=== PATIENT | female | born 1975 | race Caucasian/White ===

== ENCOUNTER → 2019-08-15 15:03 | Outpatient (CLI) | payer BC, SELFPAY ==
--- NOTE | 2019-08-15 15:09 | US_ITS ---
PROCEDURE: US TRANSVAGINAL CLINICAL INDICATION: Heavy Bleeding/Pelvic Pain COMPARISON: No exams were available for comparison FINDINGS: UTERUS: 7cm x 6cmx 6cm with a combined endometrial thickness of 20.9mm LEFT OVARY: 3dqi8xao3.2cm with a volume of 27.6ml. RIGHT OVARY: [id number] with a volume of 23.2ml. There is an 18 mm nabothian cyst. The uterus is retroverted and the endometrium is thickened at 2 cm. There is a 3 cm left ovarian cyst. There is a 3.7 cm area of heterogeneous echogenicity in the fundus consistent with a fibroid. There is a 2 x 16 mm area isoechoic area with enhanced through transmission of sound involving the right ovary may be due to hemorrhagic cyst IMPRESSION: 1. Thickened endometrium at 2 cm. 2. 3.7 cm fibroid within the fundus. 3. 3 cm left ovarian cyst with fluid in the left adnexa 4. Possible 2 cm right ovarian hemorrhagic cyst Dictated by: Shahid Batista MD 08/15/2019 16:08 Electronically signed by Shahid Batista MD in [place] 08/15/2019 16:08
== END ==
PROVIDERS: PCP Emergency Medicine; Visit Provider Nurse Practitioner Obstetrics & Gynecology
DX: N92.0 Excessive and frequent menstruation with regular cycle (principal); R10.2 Pelvic and perineal pain
CPT/HCPCS: 76830

== ENCOUNTER → 2019-08-31 11:33 | Outpatient (CLI) | payer BC, SELFPAY ==
[2019-08-31 12:21] LABS: Basophils # 0.1 K/mm3 (0-0.2); Basophils % 0.8 % (0.1-2.0); Eosinophils # 0.3 K/mm3 (0.0-0.4); Eosinophils % 4.3 % (0.1-12.0); Hematocrit 32.1 % (37.0-47.0); Hemoglobin 10.8 g/dL (12.2-16.2); Lymphocytes # 1.8 K/mm3 (0.7-4.5); Lymphocytes % 31.3 % (10-50); Mean Corpuscular HGB Conc 33.6 g/dL (31.8-35.4); Mean Corpuscular Hemoglobin 29.2 pg (27.0-31.2); Mean Corpuscular Volume 86.9 fl (81-99); Mean Platelet Volume 7.4 fl (7.4-10.4); Monocytes # 0.2 K/mm3 (0.1-1.0); Monocytes % 3.8 % (1.7-9.3); Neutrophils # 3.5 K/mm3 (1.8-7.8); Neutrophils % 59.7 % (37.0-80.0); Platelet Count 365 K/mm3 (142-424); Red Blood Count 3.69 M/mm3 (4.20-5.40); Red Cell Distribution Width 13.5 % (11.5-17.5); White Blood Count 5.9 K/mm3 (4.8-10.8)
[2019-08-31 13:09] LABS: Anion Gap 10.5 mEq/L (5-15); Blood Urea Nitrogen 25 mg/dl (7-17); Calcium 9.5 mg/dl (8.4-10.2); Carbon Dioxide 28 mmol/L (22.0-30.0); Chloride 101 mmol/L (98-107); Estimated Glomerular Filt Rate 78 ml/min (>60); GFR (African American) 94 ML/MIN (>60); Glucose 98 mg/dl (74-100); Potassium 4.5 mmoL/L (3.5-5.1); Sodium 135 mmol/L (136-145)
[2019-08-31 13:16] LABS: HCG Qualitative, Serum Negative (Negative)
[2019-08-31 13:25] LABS: Coronavirus 19 IgG Antibody Negative (Negative); Coronavirus 19 IgM Antibody Negative (Negative)
== END ==
PROVIDERS: Visit Provider Nurse Practitioner Obstetrics & Gynecology
DX: Z01.818 Encounter for other preprocedural examination (principal); D25.9 Leiomyoma of uterus, unspecified; N92.0 Excessive and frequent menstruation with regular cycle; R10.2 Pelvic and perineal pain
CPT/HCPCS: 36415; 80048; 84703; 85025; 86328

== ENCOUNTER 2019-09-03 10:44 | Observation (INO) | payer BC, SELFPAY ==
--- NOTE | 2019-08-30 15:09 | SUR.PREOP ---
08/30/2019 @ 1500--PHONE CALL MADE TO PATIENT. PATIENT UNDERSTANDS THAT LAB WORK AND COVID TESTING NEEDS TO BE COMPLETED @ 1100 ON 08/31/2019. PATIENT UNDERSTANDS IF LAB WORK AND COVID-19 TESTS ARE NOT COMPLETED BY 12PM ON THAT DATE, THE SURGERY SCHEDULED WILL BE CANCELLED AND RESCHEDULED FOR ANOTHER TIME.
[2019-08-31 10:41] VITALS: BMI 31.2
[2019-09-03] VITALS (26 sets, daily range): BP systolic 106–139; BP diastolic 51–76; PULSE 53–70; RESP 7–20; TEMP 36.4–43; O2SAT 95–100
--- NOTE | 2019-09-03 06:50 | ECG_ITS ---
APPROVED REPORT Exam: Resting ECG HR:65 bpm ECG Measurements Heart Rate 65 AXES NE 140 P 72 QRSd 106 QRS 66 QT 450 T 31 QTc 468 <Conclusion> Normal sinus rhythm Normal ECG Electronically signed by : Demario Scott, 09/03/2019 17:27:20
--- NOTE | 2019-09-03 08:26 | P.PN_ITS ---
[facility] Anesthesia Checklist - Patient Identification Patient Identification: Arm Band, Verbal (Name & ) - Structural Data Admitted From: Home Planned Operative Procedure/s: LAVH, BSO Consent for Planned Operative Procedure(s) Verified: Yes Verified Documents: Surgical Consent, History and Physical - NPO Status Verified Time NPO: 00:00 - Chart Verification Results Verified: CBC, BMP, UA - Additional verifications Patient : No Anesthesia Reactions: No Hx Blood Transfusions: No Blood Transfusion Reaction: No - Airway Assessment C-Spine Mobility Assessed: Yes (MP 2, TMD 2) TMJ Mobility Assessed: Yes Dentition: Good Dentition ([place]) - Neurological Assessment Level of Consciousness: Awake, Alert, Appropriate, Follows Commands Hx Seizures: No Numbness or tingling in extremities: No - Anesthesia Plan Anesthesia Risk discussed: Yes Anesthesia Plan: Verified ASA Class: II Anesthesia Type: General [facility] History I have reviewed the patient's past medical history: Yes Medical History: Reports:: Asthma Denies:: Cancer, Diabetes Mellitus Type 1, Diabetes Mellitus Type 2, Internal Pacemaker, MRSA, Seizures *Have you ever received a pneumonia vaccine?: No *Have you received a flu vaccine this season?: No Other Medical History: Denies: Blood Transfusion Reaction Anesthesia experience/problems:: No prior complications Laterality Cases: Bilateral: Tonsillectomy Other Surgeries: No: Pacemaker Amputation: No Fractures: No - *Social History Educational Level: Completed High School Smoking Status: Never smoker Alcohol Intake: never Substance Use Type: denies use *Occupational Status:: employed Housing: house *Travel in the last 8 weeks: None Family Hx:: Cancer, Coronary Artery Disease, Heart Attack
--- NOTE | 2019-09-03 10:02 | HMH.OPNOTE ---
Date of procedure: 09/03/19 Pre-op Diagnosis:: Fibroid uterus, menorrhagia, left ovarian cyst Post-op Diagnosis:: Fibroid uterus, menorrhagia, extensive pelvic peritoneal adhesions, left ovarian peritoneal cyst, likely endometriosis with chocolate cyst, Procedure performed:: Laparoscopically assisted vaginal hysterectomy, left salpingo-oophorectomy, right salpingectomy, extensive lysis of adhesions Surgeon:: Tor Parker MD Loans Consultant(s):: Day Cooley MAINTENANCE GROUNDSKEEPER:: Clay Dorantes Anesthesia: GETA Estimated blood loss (mL): 500 Clinical Note:: She is a 44-year-old lady who complains of extremely heavy periods. An ultrasound confirmed a 3 cm fibroid within the uterus. She also had what appeared to be a left ovarian cyst. An endometrial biopsy was negative for hyperplasia or carcinoma. After having discussed the risk and benefits we elected perform a laparoscopic-assisted vaginal hysterectomy and bilateral salpingectomy. We discussed the left ovarian cyst and the possibility of removing the left ovary. Operative findings:: She had a retroverted bulky uterus. It was fixed in the pelvis. There was a fibroid approximately 3 cm in size that was to the right of the cervix in the lower uterine segment. The right ovary and tube were completely adherent into the pelvis. The left ovary and tube were also adherent into the deep pelvis as well. There was a 3 to 4 cm peritoneal inclusion cyst. When I freed up the ovaries there was some chocolate old blood possibly consistent with endometriosis. The appendix appeared normal. The upper abdomen appeared normal. Operative note:: She was taken to the operating room where general anesthesia was found be adequate. She was prepped and draped in normal sterile fashion in the semilithotomy position. A weighted speculum was placed in the vagina and the anterior lip of the cervix was grasped with a tenaculum. An acorn uterine manipulator was then placed within the cervical os. I then changed gloves. I injected 10 cc of 0.5% ropivacaine around the umbilicus and made a small incision within the umbilicus. I inserted a Veress needle into the abdominal cavity. The abdominal cavity was then insufflated with carbon dioxide gas to a pressure of 20 mmHg. I then inserted an 11 mm trocar under direct vision. I injected through and through the pubic hairline, made a small incision here and inserted a 5 mm trocar under direct vision. I identified the inferior epigastric arteries on the left side, went lateral to these and injected through and through. I then made a small incision and inserted an 11 mm trocar under direct vision. A similar 11 mm trocar was placed on the right side. Upon entering the abdominal cavity was noted that the uterus was retroverted and retroflexed and fixed in the pelvis. The ovaries bilaterally and tubes were adherent to the deep pelvis. There was a 3 to 4 cm peritoneal inclusion cyst. Using harmonic scalpel as well as blunt and sharp dissection I freed up the ovaries bilaterally. This was quite extensive and it took me about half an hour to do this. The left round ligament was then grasped and cut through with harmonic scalpel. This was followed by opening up the peritoneum anteriorly to the midline. I then grasped the tube on the left side and cut through this. This is followed by cutting through the left utero-ovarian ligament. I used Harmonic scalpel on the coagulation mode. I then took down the posterior aspect of the broad ligament to the level of the uterosacral ligament. I then skeletonized the uterine arteries on the left side and placed hemoclips on these. Using the harmonic scalpel on coagulation mode adjacent to the cervix I then took down these uterine arteries. I then further freed up the bladder anteriorly and laterally on the left side. I then turned my attention to the right side where I grasped the right round ligament. I then cut through the right round ligament.
--- NOTE | 2019-09-03 10:10 | P.PN_ITS ---
[facility] Anesthesia Record Part I Intake, IV Amount: 1,300 Estimated blood loss (mL): 500 Urine output (mL): 50 Blood Products used (#): none Blood Pressure: 106/69 SaO2: 97 Pulse Rate: 69 Respiratory Rate: 10 Temperature: 97.5 F Patient is:: Drowsy, Oral/Nasal airway, Stable Stable to PACU at:: 10:07
--- NOTE | 2019-09-03 10:44 | PC.NURSE ---
Report received from Monisha Lee RN in PACU at 1043.
--- NOTE | 2019-09-03 10:51 | P.CONPHA_ITS ---
[facility] Pharmacy VTE Monitoring - Patient Demographics Admission date: 09/03/19 Report Date: 09/03/19 Time: 10:51 Allergies/Adverse Reactions: Patient Allergies No Known Allergies Allergy (Verified 08/31/19 10:38) Height: 1.57 m Weight: 77.564 kg - Prophylaxis VTE Prophylaxis Ordered?: Yes Types of VTE Prophylaxis: IPCS Thigh High, Pharmacological Location of Applied Device: Bilateral Lower Extremeties Pharmacologic Type: Enoxaparin - VTE Diagnosis Confirmed Treatment or plan recommended: Continue Current Treatment
--- NOTE | 2019-09-03 11:22 | PC.NURSE ---
1120 Pt sleeping soundly with resps even and unlabored. IV patent and infusing without difficulty. F/C patent and draining bright, yellow urine at bedside. IPCS on BLE. Bed locked and in lowest position with side rails up x2, call light within reach, at bedside.
[2019-09-03 11:52] LABS: Appearance,Urine/Cath CLOUDY (Clear); Bilirubin,Cath Negative (Negative); Blood, Urine/Cath 2+ (Negative); Color,Urine/Cath YELLOW (Yellow); Glucose,Urine/Cath (UA) Negative (Negative); Ketones,Urine/Cath Negative (Negative); Leukocyte Esterase,Cath Negative (Negative); Nitrate,Cath Negative (Negative); Protein,Urine/Cath TRACE (Negative); Specific Gravity, Urine/Cath >= 1.030 (1.005-1.030); Urobilinogen,Cath 0.2 EU/dl (0.2)
[2019-09-03 12:33] LABS: Bacteria,Urine/Cath 1+ /lpf; Squamous Epithelial Ur./Cath Occasional #/hpf (0-5)
--- NOTE | 2019-09-03 14:55 | HMH.ANESII ---
[facility] Anesthesia Record Part II Discharge Time: 10:48 Destination: Obstetric Gynecology Dept PACU nurse assessment reviewed?: Yes Patient Condition:: Good Anesthesia Complications:: None Swallowing reflex intact?: Yes Cyanosis?: No Blood Pressure: 123/76 Pulse Rate: 61 Temperature: 97.5 F Mental Status: Alert & Oriented (Drowsy) Pain level:: 0 Nausea and/or vomitting:: None Intake, IV Amount: 0
--- NOTE | 2019-09-03 16:05 | PC.NURSE ---
RN reassessment completed at 1600. Pt is s/p LAVH with LSO, RS and lysis of adhesions. Pt has 4 lap sites to abdomen with telfa and tegaderm dressings. Scant amount of serosang. drainage noted to suprapubic site which is unchanged from previous assessment. Abdomen is soft and mildly tender with BS active in all quads. Pt denies passing any flatus. Pt has tolerating full liquids well and has been advanced to a regular diet per MD order. Lung sounds CTA, pt without any s/s distress. VSS. Pt medicated with scheduled toradol at this time for c/o pain in her abdomen as a 6 on a 0-10 scale, will reassess pain level. 20 G IV in right hand infusing without any difficulty. F/C patent and draining bright yellow urine at bedside, approx 200 ml of urine noted in collection bag. S/O at bedside at this time, pt dozing off and on during reassessment. Bed locked and in the lowest position with side rails up x2, call light within reach, will continue to monitor.
--- NOTE | 2019-09-03 16:10 | PC.NURSE ---
lab personnel at bedside at this time for H/H.
[2019-09-03 16:21] LABS: Hematocrit 26.4 % (37.0-47.0); Hemoglobin 8.7 g/dL (12.2-16.2)
--- NOTE | 2019-09-03 18:59 | PC.NURSE ---
Pt sitting up in bed looking at her telephone and talking to her . Pt reports recent nausea that has now resolved. Pt reports I think I drank too much water. Pt aware that there is medication ordered if she needs anything for nausea. No needs/concerns voiced at this time, call light within reach.
--- NOTE | 2019-09-03 19:10 | PC.NURSE ---
REPORT RECEIVED FROM SHARON PINTO.
--- NOTE | 2019-09-03 19:50 | PC.NURSE ---
PT ASSESSED AT THIS TIME. VSS. BILATERAL LUNG SOUNDS CLEAR. NO EDEMA NOTED. PT A&O BUT STILL SOMEWHAT DROWSY. PT PALE IN COLOR. LAP SITES ARE C/D/I SUPRAPUBIC LAP SITE SCANT AMOUNT OF SEROSANGUINEOUS FLUID NOTED. BOWEL SOUNDS PRESENT X4 QUADS. DENIES PASSING FLATUS. ABD SOFT AND TENDER. SMALL AMOUNT OF RUBRA VAGINAL BLEEDING NOTED. BRIGHT YELLOW URINE NOTED IN CATHETER BAG. PT STATES PAIN IS A 6/10 ON VERBAL SCALE AT THIS TIME R/T INCISIONAL PAIN. PT C/O NAUSEA AT THIS TIME. WILL CONTINUE TO OBSERVE.
--- NOTE | 2019-09-03 20:04 | PC.NURSE ---
PT MEDICATED PER EMAR A THIS TIME R/T NAUSEA. RN EDUCATED ON CATHETER REMOVAL AND ENCOURAGED TO DO SO SOON. PT VU. AVERY AT BEDSIDE. PT EATING ICE CHIPS. WILL CONTINUE TO OBSERVE.
--- NOTE | 2019-09-03 20:55 | PC.NURSE ---
PT RANG OUT AT THIS TIME STATES HER PAIN IS 7/10 ON VERBAL SCALE. STATING THROBBING PAIN IN ABD.
--- NOTE | 2019-09-03 20:56 | PC.NURSE ---
DR. PATTON CALLED AT THIS TIME AND UPDATED PT STATUS AND PAIN STATUS. STATES THAT IT IS OK TO GIVE SOME BREAK THROUGH IV MORPHINE AT THIS TIME. ALSO STATES THAT IS OK TO LEAVE INDWELLING CATHETER IN TILL RESIDENTIAL INTERIOR DESIGNER. ORDERS REPEATED AND VERIFIED.
--- NOTE | 2019-09-03 21:02 | PC.NURSE ---
PT MEDICATED WITH 1 MG OF IV MORPHINE AT THIS TIME R/T PAIN. ONLY GAVE HALF A DOSE AT THIS TIME R/T PT DROWSY AND CAN HAVE PO OXY @ 2210. WILL CONTINUE TO OBSERVE.
--- NOTE | 2019-09-03 21:35 | PC.NURSE ---
RN TO EVALUATE PAIN PT ASLEEP AT THIS TIME.
[2019-09-03 21:57] LABS: Microscopic,Cath URINE MICROSCOPIC (MICROSCOPIC)
--- NOTE | 2019-09-03 22:14 | PC.NURSE ---
pt medicated per scheduled emar and prn at this time r/ t6/10 on verbal scale. will continue to observe.
--- NOTE | 2019-09-03 22:34 | PC.NURSE ---
pt eating [employer] fries at this time that brought. denies any needs at this time.
--- NOTE | 2019-09-03 23:31 | PC.NURSE ---
IV ABX STARTED AT THIS TIME. PT STATES PAIN IS 4/10 ON VERBAL SCALE. VSS. SLEPT AT INTERVAL. WILL CONTINUE TO OBSERVE.
[2019-09-04] VITALS (23 sets, daily range): BP systolic 85–126; BP diastolic 39–68; PULSE 55–84; RESP 14–18; TEMP 36.6–37.1; O2SAT 95–99
--- NOTE | 2019-09-04 01:01 | PC.NURSE ---
PT ASLEEP WITH EYES CLOSED. RESPIRATIONS EVEN AND UNLABORED. WILL CONTINUE TO OBSERVE.
--- NOTE | 2019-09-04 02:22 | PC.NURSE ---
PT RATES PAIN 5/10 ON VERBAL SCALE AT THIS TIME R/T ABD AND GAS PAIN. STATES THAT SHE IS PASSING GAS. DENIES ANY FURTHER NEEDS AT THIS TIME. RESTING AT INTERVAL.
--- NOTE | 2019-09-04 04:30 | PC.NURSE ---
PT ASSESSMENT COMPLETED AT THIS TIME. VSS. INDWELLING CATHETER EMPTIED AND 1600 ML OUT AT THIS TIME. INDWELLING CATHETER REMOVED AND PT TOLERATED WELL. 10 ML OF SALINE REMOVED FROM CATHETER. BILATERAL LUNG SOUNDS CLEAR. NO EDEMA NOTED. PT RATES PAIN 5/10 ON VERBAL SCALE AT THIS TIME R/T ABD AND VELA. TO SOON TO MEDICATE PER EMAR. LAP SITES C/D/I. SCANT AMOUNT OF VAGINAL BLEEDING NOTED.
--- NOTE | 2019-09-04 04:40 | PC.NURSE ---
PT AMBULATED TO BR AT THIS TIME WITH STAND BY ASSIST. ABLE TO VOID 100 ML AT THIS TIME. PT TOLERATED WELL.
--- NOTE | 2019-09-04 05:50 | PC.NURSE ---
LAB AT BEDSIDE OBTAINING BLOOD PER CBC AND BMP ORDERS.
[2019-09-04 06:12] LABS: Basophils % 0.2 % (0.1-2.0); Eosinophils % 0.2 % (0.1-12.0); Lymphocytes # 1.8 K/mm3 (0.7-4.5); Mean Corpuscular HGB Conc 32.4 g/dL (31.8-35.4); Mean Corpuscular Hemoglobin 27.8 pg (27.0-31.2); Mean Corpuscular Volume 85.8 fl (81-99); Mean Platelet Volume 9.1 fl (7.4-10.4); Monocytes # 0.5 K/mm3 (0.1-1.0); Monocytes % 6.1 % (1.7-9.3); Neutrophils % 68.5 % (37.0-80.0); Platelet Count 294 K/mm3 (142-424); Red Blood Count 2.76 M/mm3 (4.20-5.40); Red Cell Distribution Width 13.3 % (11.5-17.5); White Blood Count 7.3 K/mm3 (4.8-10.8)
[2019-09-04 06:14] LABS: Hematocrit 23.7 % (37.0-47.0); Hemoglobin 7.7 g/dL (12.2-16.2)
--- NOTE | 2019-09-04 06:15 | PC.NURSE ---
Agus MUNGUIA IN LAB CALLED TO REPORT CRITICAL LAB AT THIS TIME. HGB 7.7 AND HCT 23.7. STANDING ORDERS TO TRANSFUSE 2 UNITS OF BLOOD IF HGB IS LESS THAN 8. WILL FOLLOW ORDERS AT THIS TIME.
[2019-09-04 06:17] LABS: Chloride 104 mmol/L (98-107); Potassium 3.4 mmoL/L (3.5-5.1); Sodium 135 mmol/L (136-145)
[2019-09-04 06:20] LABS: Anion Gap 11.4 mEq/L (5-15); Blood Urea Nitrogen 10 mg/dl (7-17); Calcium 7.6 mg/dl (8.4-10.2); Carbon Dioxide 23 mmol/L (22.0-30.0); Creatinine Clearance Estimated 126 mL/min (50-200); Estimated Glomerular Filt Rate 91 ml/min (>60); GFR (African American) 110 ML/MIN (>60); Glucose 114 mg/dl (74-100)
--- NOTE | 2019-09-04 06:30 | PC.NURSE ---
PT MEDICATED PER EMAR AT THIS TIME R/T PAIN 5/10 ON VERBAL SCALE. WILL CONTINUE TO OBSERVE.
--- NOTE | 2019-09-04 06:35 | PC.NURSE ---
BLOOD TRANSFUSION CONSENT GONE OVER AND SIGNED. QUESTIONS ENCOURAGED AND ANSWERED. PT EDUCATED OF S/S OF REACTION. PT VU.
--- NOTE | 2019-09-04 06:52 | PC.NURSE ---
DR. PATTON CALLED TO CHECK IN ON PT. STATES TO FOLLOW ORDERS AND TRANSFUSE 2 UNITS OF BLOOD. WILL BE IN TO SEE PT LATER THIS MORNING.
--- NOTE | 2019-09-04 07:00 | PC.NURSE ---
REPORT GIVEN TO Annemarie MICHAELS RN.
--- NOTE | 2019-09-04 08:35 | PC.NURSE ---
at bedside at 0835, RN also present during rounds. MD reviewed trending VS with RN. Pt dozing while MD in the room assessing pt. Per MD, to change oxycodone from 10 mg Q4H PRN to 5 mg Q4H PRN mod-severe pain, R/V. states that hypotension is related to narcotic usage. MD notified pt that we will see how she does after receiving both units of blood and she may be ready for discharge some time this evening, pt and agreeable.
--- NOTE | 2019-09-04 09:04 | HMH.ACPN2 ---
Internal Medicine - PN: Subj *Date: 09/04/19 *Time: 09:04 Interval history: She is doing well this morning. She had a drop in her hemoglobin from 8.7-7.7 so we have elected to transfuse her 2 units of blood. Her blood pressure has been slightly low this morning but she is extremely sensitive to narcotics. It has risen on its own. She was quite drowsy. She denies chest pain, shortness of breath or calf tenderness. She is eating and drinking and ambulating. She has had her Paredes catheter removed. She has been able to void on her own. Exam Vital signs and Labs for Last 24 Hours: Temp Pulse Resp BP Pulse Ox 98.3 F 64 14 92/45 L 95 09/04/19 08:45 09/04/19 08:45 09/04/19 08:45 09/04/19 08:45 09/04/19 08:45 Laboratory Results - last 24 hr 09/03/19 10:30: Urine Color Yellow, Urine Appearance Cloudy, Urine pH 6.0, Ur Specific [place] >= 1.030, Urine Protein Trace, Urine Glucose (UA) Negative, Urine Ketones Negative, Urine Blood 2+, Urine Nitrate Negative, Urine Bilirubin Negative, Urine Urobilinogen 0.2, Ur Leukocyte Esterase Negative, Urine RBC 5-10, Urine WBC 5-10, Ur Squamous Epith Cells Occasional, Ur Transition Epith Cell 5-10, Urine Bacteria 1+ 09/03/19 16:12: Hgb 8.7 L, Hct 26.4 L 09/03/19 17:30: Blood Type A Negative, Antibody Screen Negative, Crossmatch (AHG) See Detail 09/04/19 05:45: Blood Type Confirm A Negative 09/04/19 05:45: WBC 7.3, RBC 2.76 L, Hgb 7.7 L*, Hct 23.7 L*, MCV 85.8, MCH 27.8, MCHC 32.4, RDW 13.3, Plt Count 294, MPV 9.1, Neut % (Auto) 68.5, Lymph % (Auto) 25.0, [place] % (Auto) 6.1, Eos % (Auto) 0.2, Baso % (Auto) 0.2, Neut # (Auto) 5.0, Lymph # (Auto) 1.8, [place] # (Auto) 0.5, Eos # (Auto) 0.0, Baso # (Auto) 0.0 09/04/19 05:45: Sodium 135 L, Potassium 3.4 L, Chloride 104, Carbon Dioxide 23, Anion Gap 11.4, BUN 10, Creatinine 0.70, Estimated Creat Clear 126, Estimated GFR 91, Est GFR ( Amer) 110, Glucose 114 H, Calcium 7.6 L I & O for Last 24 hours: Intake & Output 09/01/19 09/02/19 09/03/19 09/04/19 11:59 11:59 11:59 11:59 Intake Total 1300 / 1300 2889 / 2889 Output Total 2049 Balance 1300 / 1300 839 / 839 - Constitutional no acute distress - *Routine HEENT Exam Head: Present: normocephalic Eye: Present: EOMI, PERRL ENT: Present: mucous membranes moist - *Routine Respiratory Exam Absent: accessory muscle use (good air entry bilaterally), wheezes, crackles - *Routine Cardiovascular Exam Present: RRR. Absent: murmur - *Routine Abdominal Exam Present: soft, normoactive bowel sounds. Absent: tenderness, rebound, guarding, mass Comments: Her incisions are clean and dry. - *Routine Extremities Exam Present: full ROM. 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 She is doing well otherwise. Her pain is reasonably well controlled. We have been giving her 10 mg of oxycodone but we will go ahead and drop this back to 5 mg since she is so sensitive to the narcotics. She is also receiving Tylenol and Toradol. Her urine output has been g
--- NOTE | 2019-09-04 10:40 | PC.NURSE ---
Pt assisted to BR with stand by assistance and then to sit up in rocking chair. Pt tolerating ambulation well and voided without any difficulty. Pt also reports that she has been passing flatus. Bed linens changed while pt up to BR. Pt sitting up in chair looking at telephone and talking with S/O. IPCS removed prior to ambulation and will stay off per pt request. Pt denies any pain/discomfort at this time, did received scheduled toradol per EMAR. Call light within reach, will continue to monitor.
--- NOTE | 2019-09-04 11:14 | PC.NURSE ---
Lab personnel at bedside for H/H.
[2019-09-04 11:20] LABS: Hematocrit 30.6 % (37.0-47.0)
[2019-09-04 11:35] LABS: Hemoglobin 10.3 g/dL (12.2-16.2)
--- NOTE | 2019-09-04 16:13 | PC.NURSE ---
RN reassessment completed at 1610. Pt has rested in intervals this shift, has been more alert since receiving 2 units of PRBCS. Abd soft and mildly tender with BS active in all quads. Pt has been medicated with oxycodone 5mg PO x2 this shift and appears more alert versus this morning after receiving 10mg but pt reports that she does not notice a difference. Pt reports good pain relief with oxycodone 5mg. 4 lap sites noted to abdomen, telfa and tegaderm dressings C/D/I. Suprapubic lap site with minimal amount of serosang. drainage, unchanged from AM assessment. BP has improved to 118/68 at time of reassessment. Pt reports passing flatus, no BM this shift. Pt has ambulated to BR with stand by assistance several times this shift to void, no difficulty. Lung sounds CTA, no s/s distress. Pt recently c/o headache, reports that this has improved some since drinking caffeine and receiving pain medication. Bed locked and in lowest position with side rails up x2, call light within reach, no needs/concerns voiced at this time.
--- NOTE | 2019-09-04 19:15 | PC.NURSE ---
REPORT RECEIVED FROM Annemarie MICHAELS RN.
--- NOTE | 2019-09-04 20:15 | PC.NURSE ---
ASSESSMENT COMPLETED AT THIS TIME . VSS. BILATERAL LUNG SOUNDS CLEAR. NO EDEMA NOTED. BOWEL SOUNDS PRESENT X4 QUADS. STATES SHE HAS BEEN PASSING FLATUS BUT STILL NO BM. LAP SITES ARE COVERED WITH BAND AIDES AND ARE C/D/I. SCANT AMOUNT OF VAGINAL BLEEDING NOTED. STATES PAIN IS 4/10 ON VERBAL SCALE R/T ABD PAIN. MEDICATED PER EMAR AT THIS TIME. WILL CONTINUE TO OBSERVE.
--- NOTE | 2019-09-04 22:17 | PC.NURSE ---
MEDICATED PER SCHEDULED EMAR AT THIS TIME. DENIES ANY NEEDS. WATCHING TV AND TALKING TO . WILL CONTINUE TO OBSERVE.
[2019-09-05 00:20] VITALS: BP 121/74; PULSE 68; RESP 18; TEMP 36.8; O2SAT 97
--- NOTE | 2019-09-05 00:20 | PC.NURSE ---
PT AMBULATED TO BR AND BACK INDEPENDENTLY AND TOLERATED WELL. VSS. PT STATES PAIN 4/10 ON VERBAL SCALE AND MEDICATED PER EMAR AT THIS TIME. DENIES ANY FURTHER NEEDS AT THIS TIME. WILL CONTINUE TO OBSERVE.
--- NOTE | 2019-09-05 02:20 | PC.NURSE ---
PT ASLEEP WITH EYES CLOSED. RESPIRATIONS EVEN AND UNLABORED. WILL CONTINUE TO OBSERVE.
[2019-09-05 04:00] VITALS: BP 137/83; PULSE 74; RESP 16; TEMP 36.7; O2SAT 95
[2019-09-05 04:20] VITALS: O2SAT 95
--- NOTE | 2019-09-05 04:43 | PC.NURSE ---
PT REASSESSED AT THIS TIME. VSS. NO CHANGES NOTED. PT DENIES THE NEED FOR PRN PAIN MEDICATION AT THIS TIME. SLEPT AT INTERVAL. WILL CONTINUE TO OBSERVE.
--- NOTE | 2019-09-05 06:08 | PC.NURSE ---
pt up to br at this time. tolerated ambulation well. pt states that she has a throbbing VELA. medicated per emar at this time. denies need for oxycodone at this time. will continue to observe.
--- NOTE | 2019-09-05 07:08 | PC.NURSE ---
REPORT GIVEN TO Aura THIBODEAUX RN.
[2019-09-05 08:00] VITALS: BP 127/70; PULSE 70; RESP 18; TEMP 36.7; O2SAT 95
--- NOTE | 2019-09-05 08:00 | PC.NURSE ---
ASSESSMENT COMPLETED AT THIS TIME. PT STATES HER HEADACHE PAIN HAS DECREASED THIS AM. SHE IS EATING CHEERIOS BUT IS HUNGRY. ORDERED HER PANCAKE NOW. ASSESSMENT UNREMARKABLE. LUNGS CTA AND BOWEL SOUNDS HYPERACTIVE. PASSING GAS, BUT NO BOWEL MOVEMENT. TRACE AMOUNT OF EDEMA NOTED ON BLE. NO CURRENT NEEDS.
--- NOTE | 2019-09-05 08:17 | PC.NURSE ---
DR. PATTON AT BEDSIDE. REPORT GIVEN
--- NOTE | 2019-09-05 08:25 | HMH.DCSUM ---
General - General Admission date:: 09/03/19 Discharge date: 09/05/19 HPI HPI: She is a 44-year-old lady who complains of extremely heavy periods. She is known to have a fibroid uterus and she has anemia. As result of that she was offered laparoscopic-assisted vaginal hysterectomy and bilateral salpingectomy. She is also known to have a 3 cm left ovarian cyst. Hospital Course Hospital Course: On September 03, 2019 she underwent a laparoscopically assisted vaginal hysterectomy, left salpingo-oophorectomy and right salpingectomy. She had extensive pelvic peritoneal adhesions with the ovaries and tubes adherent to the deep pelvis as well as the posterior aspect of the cervix. It appeared there may have been endometriosis there as well. She had a fibroid on her uterus in the lower uterine segment near the cervix. She had slightly more blood loss than normal and her hemoglobin dropped to 7.7 and as a result of that we elected to transfuse her 2 units of blood. She has done well since then and has remains afebrile throughout her hospitalization. She is eating and drinking and ambulating. She is passing gas. Her incisions are clean and dry. She will be discharged home today to follow-up with me in approximately 2 weeks time. She was given the usual instructions with respect to limiting her activity, driving and sexual activity. She was given a prescription for Percocet 5/325 number 30 tablets. She will also take ibuprofen. Her condition on discharge is stable and improved. Objective Vital signs: Temp Pulse Resp BP Pulse Ox 98.1 F 70 18 127/70 95 09/05/19 08:00 09/05/19 08:00 09/05/19 08:00 09/05/19 08:00 09/05/19 08:00 no acute distress - *Routine HEENT Exam Head: Present: normocephalic Eye: Present: EOMI, PERRL ENT: Present: mucous membranes moist - *Routine Neck Exam Present: supple - *Routine Abdominal Exam Present: soft, normoactive bowel sounds. Absent: tenderness Comments: Her incisions are clean and dry. Results Labs on day of discharge: Labs from last 24 hours 09/04/19 09/03/19 11:05 17:30 Hgb 10.3 L D Hct 30.6 L Blood Type A Negative Antibody Screen Negative Crossmatch (AHG) See Detail DS: Diagnosis - Discharge Diagnosis (1) Menorrhagia Status: Acute (2) Fibroid uterus Status: Acute (3) Anemia due to chronic blood loss Status: Acute (4) Endometriosis Status: Acute (5) Pelvic peritoneal adhesions, female Status: Acute Discharge Plan - Patient Discharge Instructions ACTIVITY: No heavy lifting DIET: continue same diet Additional Instructions: No heavy lifting, no strenuous activity, no driving for 2 weeks or while taking prescription narcotics. Patient Instructions: DI for Surgical Site Infection, DI for Postoperative Pain, Hysterectomy -- Laparoscopic Surgery, Preventing the Spread of Coronavirus Discharge Instructions - Follow up Plan Follow up with: Tor Parker MD [Staff Physician] - 09/13/19 9:30 am Disposition: Home, Self-Group Home Medications: Home Medications Medication Instructions Recorded Confirmed Type phentermine 37.5 mg tablet 37.5 mg PO DAILY 08/16/19 09/03/19 History Oxycodone HCl/Acetaminophen 1 tab PO Q4-6H PRN #30 tablet 09/05/19 Rx [Percocet 5/325mg tablet] Prescriptions/Medication Reconciliation: New Oxycodone HCl/Acetaminophen [Percocet 5/325mg tablet] 1 tab PO Q4-6H PRN #30 tablet PRN Reason: Severe Pain Held phentermine 37.5 mg tablet 37.5 mg PO DAILY - Problem Reconciliation Problems Reviewed?: Yes
--- NOTE | 2019-09-05 09:13 | PC.NURSE ---
IV TO RIGHT WRIST D/C AT THIS TIME. TOLERATED WELL. CATHLON TIP INTACT.
--- NOTE | 2019-09-05 09:25 | PC.NURSE ---
DISCHARGE TEACHING WENT OVER AT THIS TIME. PT V/U AND I ENCOURAGED QUESTION.
--- NOTE | 2019-09-05 09:55 | PC.NURSE ---
pt walked out with [facility] staff member at this time per wheelchair. no distress noted. got into private vehicle.
== END 2019-09-05 09:55 | disposition home or self-care (01) ==
LOC: OB 09-04 13:59
PROVIDERS: Admitting Provider Nurse Practitioner Obstetrics & Gynecology; PCP Emergency Medicine; Visit Provider Nurse Practitioner Obstetrics & Gynecology
PROC: 0UT9FZZ Resection of Uterus, Via Natural or Artificial Opening With Percutaneous Endoscopic Assistance (ICD-10-PCS; CPT 58552; principal; 2019-09-03 07:30)
DX: D25.1 Intramural leiomyoma of uterus (principal); D25.2 Subserosal leiomyoma of uterus; N83.202 Unspecified ovarian cyst, left side; N73.6 Female pelvic peritoneal adhesions (postinfective); N80.3 Endometriosis of pelvic peritoneum
CPT/HCPCS: 58552; 58660; 36415; 80048; 81001; 85014; 85018; 85025; 86850; 93005; 96374; G0378; J2405; P9016

== ENCOUNTER → 2019-11-07 12:17 | Outpatient (CLI) | payer BC, SELFPAY ==
--- NOTE | 2019-11-07 12:32 | ECG_ITS ---
APPROVED REPORT Exam: Resting ECG HR:61 bpm ECG Measurements Heart Rate 61 AXES RI 154 P 75 QRSd 104 QRS 86 QT 428 T 57 QTc 430 <Conclusion> Normal sinus rhythm Normal ECG Electronically signed by : Demario Scott, 11/10/2019 07:09:08
[2019-11-07 12:52] LABS: Basophils % 0.5 % (0.1-2.0); Eosinophils # 0.3 K/mm3 (0.0-0.4); Hematocrit 36.6 % (37.0-47.0); Hemoglobin 12.3 g/dL (12.2-16.2); Lymphocytes # 2.3 K/mm3 (0.7-4.5); Lymphocytes % 36.8 % (10-50); Mean Corpuscular HGB Conc 33.6 g/dL (31.8-35.4); Mean Corpuscular Hemoglobin 28.5 pg (27.0-31.2); Mean Corpuscular Volume 84.9 fl (81-99); Mean Platelet Volume 8.1 fl (7.4-10.4); Monocytes # 0.3 K/mm3 (0.1-1.0); Monocytes % 4.2 % (1.7-9.3); Neutrophils # 3.3 K/mm3 (1.8-7.8); Neutrophils % 53.5 % (37.0-80.0); Platelet Count 288 K/mm3 (142-424); Red Blood Count 4.31 M/mm3 (4.20-5.40); Red Cell Distribution Width 14.5 % (11.5-17.5); White Blood Count 6.2 K/mm3 (4.8-10.8)
[2019-11-07 14:45] LABS: Coronavirus 19 IgG Antibody Negative (Negative); Coronavirus 19 IgM Antibody Negative (Negative)
[2019-11-07 16:26] LABS: Chloride 103 mmol/L (98-107); Potassium 3.5 mmoL/L (3.5-5.1); Sodium 139 mmol/L (136-145)
[2019-11-07 16:29] LABS: Anion Gap 14.5 mEq/L (5-15); Blood Urea Nitrogen 15 mg/dl (7-17); Calcium 8.9 mg/dl (8.4-10.2); Carbon Dioxide 25 mmol/L (22.0-30.0); Estimated Glomerular Filt Rate 78 ml/min (>60); GFR (African American) 94 ML/MIN (>60); Glucose 76 mg/dl (74-100)
== END ==
PROVIDERS: Visit Provider Otolaryngology
DX: Z01.818 Encounter for other preprocedural examination (principal); C44.309 Unspecified malignant neoplasm of skin of other parts of face
CPT/HCPCS: 36415; 80048; 85025; 86328; 93005

== ENCOUNTER 2019-11-08 08:13 | Day surgery (SDC) | payer BC, SELFPAY ==
[2019-11-06 15:30] VITALS: BMI 32.9
[2019-11-08] VITALS (7 sets, daily range): BP systolic 116–145; BP diastolic 63–78; PULSE 58–73; RESP 18; TEMP 36.3; O2SAT 62–99
--- NOTE | 2019-11-08 10:45 | P.PN_ITS ---
[facility] Anesthesia Checklist - Structural Data Admitted From: Home Planned Operative Procedure/s: excision neoplasm r jewish Consent for Planned Operative Procedure(s) Verified: Yes - Additional verifications Anesthesia Reactions: No Hx Blood Transfusions: Yes Blood Transfusion Reaction: No - Airway Assessment C-Spine Mobility Assessed: Yes TMJ Mobility Assessed: Yes Dentition: Good Dentition - Neurological Assessment Level of Consciousness: Awake, Alert, Appropriate - Anesthesia Plan Anesthesia Risk discussed: Yes Anesthesia Plan: Verified ASA Class: II Anesthesia Type: MAC [facility] History I have reviewed the patient's past medical history: Yes Medical History: Reports:: Asthma Denies:: Cancer, Diabetes Mellitus Type 1, Diabetes Mellitus Type 2, Internal Pacemaker, MRSA, Seizures *Have you ever received a pneumonia vaccine?: No *Have you received a flu vaccine this season?: Yes Other Medical History: Denies: Blood Transfusion Reaction Anesthesia experience/problems:: none Laterality Cases: Bilateral: Tonsillectomy Other Surgeries: Yes: Hysterectomy-Total. No: Pacemaker Amputation: No Fractures: No - *Social History Last grade of school completed: High school graduate Smoking Status: Never smoker Alcohol Intake: never Alcohol Intake Frequency:: other Substance Use Type: denies use *Occupational Status:: employed Housing: house Household Members: family *Travel in the last 8 weeks: None Family Hx:: No significant family history
--- NOTE | 2019-11-08 10:50 | P.OP_ITS ---
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 The eyes were protected with Steri-Strips. The perilesional area was infiltrated with 3 cc of 2% lidocaine containing epinephrine. The chinyere out measured 2.8 cm in length. The chinyere out was incised, and the lesion was excised well into the pre-temporal area., and submitted. Bleeding was stopped with bipolar cautery blood loss was 10 cc. Anterior and posterior incisions were made and a tissue rearrangement geometric plastic repair was done with interrupted 4-0 nylon sutures. a Dermabond dressing was applied, and the patient was sent to recovery in good general condition. Condition: stable Disposition: PACU Complications:: none
== END 2019-11-08 12:00 | disposition home or self-care (01) ==
LOC: OR 08:15
PROVIDERS: Visit Provider Otolaryngology
PROC: (CPT 14040; principal; 2019-11-08 08:30)
DX: D23.39 Other benign neoplasm of skin of other parts of face (principal); J45.909 Unspecified asthma, uncomplicated; Z90.89 Acquired absence of other organs; Z90.710 Acquired absence of both cervix and uterus; Z79.890 Hormone replacement therapy
CPT/HCPCS: 14040; 96374; 96375

== ENCOUNTER 2019-12-09 12:52 | Emergency (ER) | payer BC, SELFPAY ==
[2019-12-09 13:08] VITALS: BP 130/77; PULSE 106; RESP 14; O2SAT 95; BMI 31.8
--- NOTE | 2019-12-09 13:11 | HMH.EDUTC ---
[facility] [place] Disposition Clinical Impression: Exposure to COVID-19 virus Disposition: Home, Self-Care Condition on Discharge: Good Instructions: Preventing the Spread of Coronavirus Discharge Instructions Additional Instructions: You have been tested for COVID19. Your test results should be available tomorrow afternoon. Until that time, please assume that you are positive and isolate yourself from others. Referrals: Kady Andrea APRN [Primary Care Provider] - Time of Disposition: 13:38 Medical Decision Making - Dieter Inquiry Pt receiving controlled substance: No Vital Signs: 12/09/19 13:08 Pulse Rate [Right Brachial] 106 H Respiratory Rate 14 Blood Pressure [Right Arm] 130/77 Blood Pressure Mean [Right Arm] 94 Blood Pressure Source [Right Arm] Automatic Cuff Blood Pressure Position [Right Arm] Sitting 02 Sat by Pulse Oximetry 95 Oxygen Delivery Method Room Air - Lab Data Lab results reviewed: Yes: I reviewed the patient's lab results. Lab Results 12/09/19 13:31: Influenza Type A Ag Negative, Influenza Type B Ag Negative 12/09/19 13:31: Strep Scn Rapid Clinic Negative Orders (Tests/Meds): ORDERS Category Date Time Status Covid-19 Nasal PCR Sendout [facility] 12/09/19 13:09 Received Strep Screen Confirmation Stat Micro 12/09/19 13:31 Received [facility] [place] HPI - General Stated complaint: covid symptoms Time Seen by Provider: 12/09/19 13:12 - History of Present Illness Provider Complaint: Fever, cough, body aches, chills, sore throat, nausea X 1 day. was positive for COVID19 but she was released from quarantine on the and returned to work. Onset (ago): day(s) (1) Relieving factors: none Exacerbating factors: none Associated symptoms: cough, fever/chills, nausea/vomiting - Related Data Home Medications Medication Instructions Recorded Confirmed estradioL [Estradiol] 2 mg PO DAILY 11/06/19 11/08/19 Allergies Allergy/AdvReac Type Severity Reaction Status Date / Time No Known Allergies Allergy Verified 11/08/19 08:29 [facility] History - Hepatitis A Screen Attestation statement:: This patient has been screened for Hepatitis A risk factors. I have reviewed the patient's past medical history: Yes Medical History: Reports:: Asthma Denies:: Cancer, Diabetes Mellitus Type 1, Diabetes Mellitus Type 2, Internal Pacemaker, MRSA, Seizures Other Medical History: Denies: Blood Transfusion Reaction Laterality Cases: Bilateral: Tonsillectomy Other Surgeries: Yes: Hysterectomy-Total. No: Pacemaker Amputation: No Fractures: No - Social History Smoking Status: Never smoker Alcohol Intake: never Alcohol Intake Frequency:: other Substance Use Type: denies use Occupational Status: employed Housing: house Household Members: family Family Hx:: No significant family history ROS Obtained: Yes All systems reviewed & no additional complaints - Constitutional Constitutional: Reports body ache, Reports chills, Reports fever(s) - ENT Ears, Nose, Mouth, and Throat: Reports sore throat - Respiratory Respiratory: Yes cough Physical Exam - General General appearance: alert, in no apparent distress - Head Head exam: atraumatic, normocephalic, normal inspection - Eye Eye exam: Present: normal appearance, PERRL, EOMI - ENT ENT exam: Present: normal exam, normal oropharynx, mucous membranes moist, TM's normal bilaterally, normal external ear exam - Neck Neck exam: Present: normal inspection, full ROM, trachea midline. Absent: meningismus, lymphadenopathy - Chest Chest inspection: Present: normal inspection, symmetric chest wall rise. Absent: tenderness - Respiratory Respiratory exam: Present: normal lung sounds bilaterally. Absent: respiratory distress - Cardiovascular Cardiovascular exam: Present: regular rate, normal rhythm. Absent: JVD - Abdominal Exam Abdominal exam: Present: soft, normal bowel sounds. Absent: distention, tenderness, guarding - Ex
[2019-12-09 13:33] LABS: UTC Influenza A Antigen Negative (Negative); UTC Strep Screen (Rapid) Negative (Negative)
[2019-12-09 13:34] LABS: UTC Influenza B Antigen Negative (Negative)
[2019-12-09 14:07] VITALS: BP 130/77; PULSE 106; RESP 14; TEMP 36.7; O2SAT 95
[2019-12-10 17:20] LABS: Covid-19 Nasal PCR Sendout UK Detected
== END 2019-12-09 14:10 | disposition home or self-care (01) ==
PROVIDERS: Emergency Provider Physician Assistant; PCP Nurse Practitioner Family
DX: Z20.828 Contact with and (suspected) exposure to other viral communicable diseases (principal); J45.909 Unspecified asthma, uncomplicated; Z90.710 Acquired absence of both cervix and uterus
CPT/HCPCS: 87804; 87880; 99202; U0003

== ENCOUNTER 2020-04-17 15:03 | Emergency (ER) | payer BC, SELFPAY ==
[2020-04-17 15:10] VITALS: BP 148/98; PULSE 62; RESP 14; TEMP 36.7; O2SAT 98; BMI 33.5
--- NOTE | 2020-04-17 15:24 | HMH.EDUTC ---
[facility] [place] Clinical Impression: Low back pain with radiation Sciatica Qualifiers: Laterality: left Qualified Code(s): M54.32 - Sciatica, left side Disposition: Home, Self-Care Condition on Discharge: Good Instructions: Low Back Pain, DI for Low Back Pain Additional Instructions: Go home and rest. It would be best if you rested tomorrow too. No heavy lifting. No twisting. Take the oral medications as directed. The muscle relaxer (robaxin) will make you drowsy, so don't drive or operate heavy machinery after taking it. Follow up with your regular doctor. GO TO THE ER FOR ANY WORSENING SYMPTOMS OR CONCERN, ESPECIALLY BOWEL OR BLADDER ISSUES, SADDLE AREA NUMBNESS, FEVER, ETC Prescriptions: Ibuprofen [Ibuprofen 800mg Tablet] 800 mg PO Q8HP PRN #30 tab PRN Reason: Moderate Pain Transmission Status: Received by [id number] Methocarbamol [Robaxin 500mg Tab] 500 mg PO BIDP PRN #30 tab PRN Reason: Muscle Spasm Transmission Status: Received by [id number] Referrals: PCP,No [Primary Care Provider] - Forms: Work/School Release Time of Disposition: 15:47 Medical Decision Making - Medical Records Medical records reviewed: No: I reviewed the patient's medical records. - Dieter Inquiry Pt receiving controlled substance: No Vital Signs: 04/17/20 15:10 04/17/20 15:50 Temperature 98.1 F 98.1 F Temperature Source Oral Pulse Rate 62 Pulse Rate [Right Brachial] 62 Respiratory Rate 14 14 Blood Pressure 148/98 H Blood Pressure [Right Arm] 148/98 H Blood Pressure Mean [Right Arm] 114 Blood Pressure Source [Right Arm] Automatic Cuff Blood Pressure Position [Right Arm] Sitting 02 Sat by Pulse Oximetry 98 Oxygen Delivery Method Room Air - Lab Data Lab Results 04/17/20 15:35: Urine Color Yellow, Urine Appearance Clear, Urine pH 6.5, Ur Specific [place] 1.025, Urine Protein Negative, Urine Glucose (UA) Negative, Urine Ketones Negative, Urine Blood Negative, Urine Nitrate Negative, Urine Bilirubin Negative, Urine Urobilinogen 0.2, Ur Leukocyte Esterase Negative [facility] [place] - General Stated complaint: back pain, no accident Time Seen by Provider: 04/17/20 15:24 - History of Present Illness Provider Complaint: She c/o low back pain for the past 2 days. She has a long history of low back pain. She denies any known injury. The pain radiates down her left leg. - Related Data Home Medications Medication Instructions Recorded Confirmed estradioL [Estradiol] 2 mg PO DAILY 11/06/19 11/08/19 Previous Rx's Medication Instructions Recorded Ibuprofen [Ibuprofen 800mg 800 mg PO Q8HP PRN #30 tab 04/17/20 Tablet] Methocarbamol [Robaxin 500mg Tab] 500 mg PO BIDP PRN #30 tab 04/17/20 Allergies Allergy/AdvReac Type Severity Reaction Status Date / Time No Known Allergies Allergy Verified 11/08/19 08:29 [facility] History - Hepatitis A Screen Attestation statement:: This patient has been screened for Hepatitis A risk factors. I have reviewed the patient's past medical history: Yes Medical History: Reports:: Asthma Denies:: Cancer, Diabetes Mellitus Type 1, Diabetes Mellitus Type 2, Internal Pacemaker, MRSA, Seizures Other Medical History: Denies: Blood Transfusion Reaction Laterality Cases: Bilateral: Tonsillectomy Other Surgeries: Yes: Hysterectomy-Total. No: Pacemaker Amputation: No Fractures: No - Social History Smoking Status: Never smoker Alcohol Intake: never Alcohol Intake Frequency:: other Substance Use Type: denies use Occupational Status: other Housing: house Household Members: family Family Hx:: No significant family history ROS Obtained: Yes All systems reviewed & no additional complaints - Constitutional Constitutional: Denies chills, Denies fever(s) - Genitourinary Female Genitourinary: Denies difficulty voiding, Denies dysuria, Denies urinary frequency, Denies urinary incontinence, Denies urinary hesitancy, Denies
[2020-04-17 15:35] LABS: Apearance,Urine Clear (Clear); Color,Urine Yellow (Yellow); PH,Urine 6.5 (5.0-8.5)
[2020-04-17 15:36] LABS: Bilirubin,Urine Negative (Negative); Blood, Urine Negative (Negative); Glucose,Urine (UA) Negative (Negative); Ketones,Urine Negative (Negative); Protein,Urine Negative (Negative); Specific Gravity, Urine 1.025 (1.005-1.030); UTC Leukocyte Esterase,Urine Negative (Negative); UTC Nitrate,Urine Negative (Negative); Urobilinogen,Urine 0.2 EU/dl (0.2)
[2020-04-17 15:50] VITALS: BP 148/98; PULSE 62; RESP 14; TEMP 36.7; O2SAT 98
== END 2020-04-17 15:53 | disposition home or self-care (01) ==
PROVIDERS: Emergency Provider Nurse Practitioner Family
DX: M54.42 Lumbago with sciatica, left side (principal); J45.909 Unspecified asthma, uncomplicated
CPT/HCPCS: 81003; 99202; G0463

== ENCOUNTER → 2020-05-02 14:15 | Outpatient (CLI) | payer BC, SELFPAY ==
--- NOTE | 2020-05-02 14:25 | US_ITS ---
PROCEDURE: US TRANSVAGINAL CLINICAL INDICATION: pelvic pain Left lower quadrant pain. Patient has had partial hysterectomy and left oophorectomy the COMPARISON: US US TRANSVAGINAL from 08/15/2019 FINDINGS: There is no free fluid in the cul-de-sac. No uterine tissue could be identified. LEFT OVARY: Surgically absent RIGHT OVARY: 4cmx [id number] with a volume of 25.3ml. There are 2 large right ovarian cysts: 2.4 x 1.9 by 2.2 centimeters and 2.1 by 2.9 x 1.8 centimeters. Six week follow-up ultrasound suggested. IMPRESSION: Prior hysterectomy and left oophorectomy. Two prominent right ovarian cysts. Six week follow-up ultrasound suggested. Dictated by: Radha Stearns MD 05/02/2020 19:04 Radha Stearns MD in [facility] 05/02/2020 19:04
== END ==
PROVIDERS: Visit Provider Nurse Practitioner Obstetrics & Gynecology
DX: R10.2 Pelvic and perineal pain (principal)
CPT/HCPCS: 76830

== ENCOUNTER → 2020-05-15 07:51 | Outpatient (CLI) | payer BC, SELFPAY ==
--- NOTE | 2020-05-15 07:56 | MM_ITS ---
PROCEDURE: MM DIG SCREENING MAMM BI W/CAD Digital Breast Tomosynthesis Included CLINICAL INDICATION: breast cancer screening There is no personal or family history of breast cancer. COMPARISON: [facility] MA MAMMO [facility]SH[facility] ENG from 10/04/2016 TECHNIQUE: Standard CC and MLO images and 3D Tomosynthesis was obtained. R2 CAD reviewed. FINDINGS: Scattered fibroglandular densities are seen throughout both breasts. There are 2 stable benign-appearing nodular densities right breast unchanged in appearance from previous mammogram 10/04/2016 there is no new or suspicious lesion in either breast and no suspicious microcalcifications. IMPRESSION: Fibrofatty parenchyma with no suspicious lesions seen BI-RAD Category: 2 Benign Finding(s) FOLLOW-UP: 1YR 1 Year Follow-up (A letter has been sent to the patient regarding results of the study.) Dictated by: Dr. Rodriguez Johns MD 05/24/2020 08:00 Dr. Rodriguez Johns MD in [facility] 05/24/2020 08:00
--- NOTE | 2020-05-15 07:56 | US_ITS ---
PROCEDURE: US ABDOMEN COMPLETE CLINICAL INDICATION: L sided abd pain COMPARISON: No exams were available for comparison FINDINGS: PANCREAS: Unremarkable. No obvious mass or abnormal fluid collection. No ductal dilatation LIVER: No focal liver lesions demonstrated. Homogeneous echogenicity. No intrahepatic biliary ductal dilatation evident. There is appropriate direction of blood flow within a non dilated portal vein RIGHT KIDNEY: Unremarkable. Normal size and echogenicity. No hydronephrosis LEFT KIDNEY: Unremarkable. Normal size and echogenicity. No hydronephrosis GALLBLADDER: No gallstones, gallbladder wall thickening, pericholecystic fluid, or biliary dilatation. AORTA: No evidence of aneurysmal dilatation. SPLEEN: Unremarkable. Normal size and echogenicity ASCITES: None demonstrated. IMPRESSION: Unremarkable abdominal ultrasound Dictated by: Shahid Batista MD 05/15/2020 18:35 Shahid Batista MD in [facility] 05/15/2020 18:35
== END ==
PROVIDERS: PCP Nurse Practitioner Family; Visit Provider Nurse Practitioner Family
DX: Z12.31 Encounter for screening mammogram for malignant neoplasm of breast (principal); R10.9 Unspecified abdominal pain
CPT/HCPCS: 76700; 77063; 77067

== ENCOUNTER → 2020-05-23 09:54 | Outpatient (CLI) | payer BC, SELFPAY ==
[2020-05-23 09:57] LABS: Adenovirus F 40/41, stool Not Detected (NotDetected); Astrovirus Not Detected (NotDetected); Campylobacter Not Detected (NotDetected); Clostridium Difficile A/B, PCR Not Detected (NotDetected); Cryptosporidium Not Detected (NotDetected); Cyclospora Cayetanesis Not Detected (NotDetected); Entamoeba histolytica Not Detected (NotDetected); Enteroaggregative E coli Not Detected (NotDetected); Enteropathogenic E coli Not Detected (NotDetected); Enterotoxigenic E coli Not Detected (NotDetected); Giardia lamblia Not Detected (NotDetected); Norovirus Not Detected (NotDetected); Plesimonas Shigalloides, PCR Not Detected (NotDetected); Rotavirus A Not Detected (NotDetected); Salmonella, PCR Not Detected (NotDetected); Sapovirus Not Detected (NotDetected); Shiga-like toxin E coli Not Detected (NotDetected); Shigella Enterovasive E coli Not Detected (NotDetected); Vibrio Cholerae Not Detected (NotDetected); Vibrio, PCR Not Detected (NotDetected); Yersinia Entercolitica, PCR Not Detected (NotDetected)
== END ==
PROVIDERS: Visit Provider Nurse Practitioner Family
DX: R10.12 Left upper quadrant pain (principal); R19.7 Diarrhea, unspecified
CPT/HCPCS: 87507

== ENCOUNTER 2020-08-06 22:51 | Emergency (ER) | payer OTHER, BC, SELFPAY ==
[2020-08-06 22:54] VITALS: BP 111/83; PULSE 69; RESP 16; TEMP 36.7; O2SAT 98; BMI 33.6
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
--- NOTE | 2020-08-06 23:41 | PC.NURSE ---
Pt gone to CT
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
[2020-08-07 01:29] VITALS: BP 118/68; PULSE 70; RESP 16; TEMP 36.8; O2SAT 98
== END 2020-08-07 01:36 | disposition home or self-care (01) ==
PROVIDERS: Emergency Provider Emergency Medicine; PCP Emergency Medicine
DX: S20.219A Contusion of unspecified front wall of thorax, initial encounter (principal); S63.92XA Sprain of unspecified part of left wrist and hand, initial encounter; V43.53XA Car driver injured in collision with pick-up truck in traffic accident, initial encounter; Y92.488 Other paved roadways as the place of occurrence of the external cause
CPT/HCPCS: 29125; 70450; 71046; 72125; 72170; 73110; 73130; 99283

== ENCOUNTER → 2020-08-25 14:29 | Outpatient (CLI) | payer OTHER, SELFPAY ==
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
== END ==
PROVIDERS: PCP Nurse Practitioner Family; Visit Provider Nurse Practitioner Family
DX: M79.642 Pain in left hand (principal)
CPT/HCPCS: 73218

== ENCOUNTER 2020-09-03 11:04 | Outpatient (RCR) | payer BC, SELFPAY | END 2020-09-03 11:10 | disposition home or self-care (01) | LOC: OT 11:04 | PROVIDERS: Visit Provider Nurse Practitioner Family | DX: M79.642 Pain in left hand (principal); V89.2XXS Person injured in unspecified motor-vehicle accident, traffic, sequela | CPT/HCPCS: 97014; 97165; G0283 ==

== ENCOUNTER → 2020-11-18 10:07 | Outpatient (CLI) | payer BC, SELFPAY | PROVIDERS: Visit Provider Orthopaedic Surgery Hand Surgery | DX: Z01.812 Encounter for preprocedural laboratory examination (principal); Z20.822 Contact with and (suspected) exposure to COVID-19 | CPT/HCPCS: 36415; U0003 ==

== ENCOUNTER 2021-03-10 10:00 | Outpatient (RCR) | payer OTHER, SELFPAY | END 2021-03-31 11:07 | disposition home or self-care (01) | LOC: OT 10:00 | PROVIDERS: PCP Nurse Practitioner Family; Visit Provider Orthopaedic Surgery Hand Surgery | DX: M79.642 Pain in left hand | CPT/HCPCS: 97010; 97014; 97035; 97110; 97140; 97164; 97165; 97530; G0283 ==

== ENCOUNTER 2021-06-25 12:48 | Emergency (ER) | payer OTHER, SELFPAY ==
[2021-06-25 13:04] VITALS: BP 164/101; PULSE 79; RESP 18; TEMP 36.4; O2SAT 98; BMI 35.3
--- NOTE | 2021-06-25 13:09 | HMH.EDUTC ---
[facility] [place] Disposition Clinical Impression: Wheezing due to allergy Allergic rhinitis Qualifiers: Allergic rhinitis trigger: other Allergic rhinitis seasonality: unspecified Qualified Code(s): J30.89 - Other allergic rhinitis Disposition: Home, Self-Care Condition on Discharge: Good Instructions: DI for Allergic Rhinitis, Allergies, Respiratory (Alternative Therapy) Additional Instructions: No sign of a bacterial infection. Likely viral. Viruses can take 7-14 days to run their course. Nasal saline and bulb syringe or nose Kailee to remove nasal drainage to help with nasal congestion. Hard to eat, drink, sleep with nasal congestion so important to keep this cleaned out. Monitor temp. Tylenol or Motrin as needed for pain or fever Encourage fluids, water, Gatorade, Powerade, Pedialyte if /toddler/child Warm salt water gargles Warm fluids Sore throat lozenges Sleep elevated Humidifier/vaporizer Follow-up immediately for new or worsening symptoms or no noticeable improvement over the next 48-72 hours. Prescriptions: Albuterol Sulfate [Albuterol Sulfate Hfa] 6.7 gm IH Q6 PRN 14 Days #1 each PRN Reason: Wheezing Transmission Status: Pending to [facility] predniSONE [Prednisone 20mg Tab] 20 mg PO BID #10 tab Transmission Status: Pending to [facility] Referrals: Robert Velásquez APRN [Primary Care Provider] - Medical Decision Making - Dieter Inquiry Pt receiving controlled substance: No Vital Signs: 06/25/21 13:04 Temperature 97.6 F Temperature Source Oral Pulse Rate [Left] 79 Respiratory Rate 18 Blood Pressure [Right Arm] 164/101 H Blood Pressure Mean [Right Arm] 122 02 Sat by Pulse Oximetry 98 [facility] [place] HPI - General Chief complaint: Urgent Treatment Center Stated complaint: cough, congestion, sinus drainage Time Seen by Provider: 06/25/21 13:09 Mode of Arrival: Ambulatory Source of Information: Patient Limitations: No Limitations Description of Symptoms (Recalled from Triage Doc. by RN): pt c/o a cough, nasal drainage and a VELA x3 days. HEENT Symptoms (Recalled from RN notes): Yes Resp Symptoms (Recalled from RN notes): Yes Skin Symptoms (Recalled from RN notes): No MS Symptoms (Recalled from RN notes): No Functional Status (Recalled from RN notes): wnl - History of Present Illness Provider Complaint: 46 yr old female presents for c/o a cough, clear nasal drainage and a VELA x3 days. pt states it started when she was help clean drywall out of a old house. - Related Data Previous Rx's Medication Instructions Recorded duloxetine 30 mg capsule,delayed 30 mg PO DAILY #90 cap 03/31/21 release gabapentin 300 mg capsule 300 mg PO BID #60 cap 03/31/21 Albuterol Sulfate [Albuterol 6.7 gm IH Q6 PRN 14 Days #1 each 06/25/21 Sulfate Hfa] predniSONE [Prednisone 20mg 20 mg PO BID #10 tab 06/25/21 Tab] Allergies Allergy/AdvReac Type Severity Reaction Status Date / Time No Known Allergies Allergy Verified 03/31/21 15:16 - Worker's Comp Is this a Worker's Comp case?: No [facility] History - Hepatitis A Screen Drug use history?: No High risk sexual behaviors?: No History of sexually transmitted infection?: No Currently employed?: No Childcare worker?: No Do you have indoor plumbing?: Yes Do you have electricity?: Yes Attestation statement:: This patient has been screened for Hepatitis A risk factors. I have reviewed the patient's past medical history: Yes Medical History: Reports:: Asthma Denies:: Cancer, Diabetes Mellitus Type 1, Diabetes Mellitus Type 2, Internal Pacemaker, MRSA, Seizures Other Medical History: Denies: Blood Transfusion Reaction Laterality Cases: Bilateral: Tonsillectomy Other Surgeries: Yes: Hysterectomy-Total, Hysterectomy-Partial, Skin Cancer Excision. No: Pacemaker Amputation: No Fractures: No - Social History Smoking Status: Never smoker Alcohol Intake: never Alcohol Intake Frequency:: other Substance Use Type: denies use Occup
[2021-06-25 13:23] VITALS: BP 164/101; PULSE 79; RESP 18; TEMP 36.4
== END 2021-06-25 13:27 | disposition home or self-care (01) ==
PROVIDERS: Emergency Provider Nurse Practitioner Family; PCP Nurse Practitioner Family
DX: J30.9 Allergic rhinitis, unspecified (principal); Z79.51 Long term (current) use of inhaled steroids; Z79.52 Long term (current) use of systemic steroids
CPT/HCPCS: 99213; G0463

== ENCOUNTER 2021-07-23 11:00 | Outpatient (RCR) | payer OTHER, SELFPAY | END 2021-08-04 09:55 | disposition home or self-care (01) | LOC: OT 11:00 | PROVIDERS: PCP Nurse Practitioner Family; Visit Provider Orthopaedic Surgery Hand Surgery | DX: M65.352 Trigger finger, left little finger (principal) | CPT/HCPCS: 97010; 97014; 97035; 97110; 97140; 97164; 97165; 97530; G0283 ==

== ENCOUNTER 2021-10-21 10:00 | Outpatient (RCR) | payer OTHER, SELFPAY | END 2021-11-12 16:35 | disposition home or self-care (01) | LOC: PT.CARL 10:00 | PROVIDERS: PCP Nurse Practitioner Family; Visit Provider Orthopaedic Surgery Hand Surgery | DX: G56.22 Lesion of ulnar nerve, left upper limb (principal) | CPT/HCPCS: 97010; 97014; 97110; 97140; 97163; 97164; 97530; G0283 ==

== ENCOUNTER 2021-11-04 13:45 | Emergency (ER) | payer OTHER, SELFPAY ==
[2021-11-04 15:08] VITALS: BP 131/84; PULSE 71; RESP 19; TEMP 36.8; O2SAT 98; BMI 36.7
[2021-11-04 15:21] LABS: UTC Influenza A Antigen Negative (Negative)
[2021-11-04 15:22] LABS: UTC Influenza B Antigen Negative (Negative)
--- NOTE | 2021-11-04 15:23 | EXP.UTC ---
Discharge Plan Disposition Patient Disposition: Home, Self-Care Condition: Good Prescriptions Prescriptions: New albuterol sulfate [ProAir HFA] 90 mcg/actuation HFA aerosol inhaler 1 inh inhalation Q4-6H PRN (Reason: shortness of breath or wheezing) Qty: 90 0RF methylprednisolone [Medrol (Brendan)] 4 mg tablets,dose pack 4 mg PO DAILY Qty: 21 0RF azithromycin 250 mg tablet See Rx Instructions .ROUTE .COMPLEX Qty: 6 0RF Rx Instructions: For 250 mg dose pack: take 500 mg today (day 1), then 250 mg for 4 days (days 2-5) No Action gabapentin 300 mg capsule 300 mg PO TID Qty: 90 2RF duloxetine 30 mg capsule,delayed release(DR/EC) See Rx Instructions .ROUTE .COMPLEX Qty: 90 3RF Dose Instruction: TAKE ONE CAPSULE BY MOUTH EVERY DAY Rx Instructions: TAKE ONE CAPSULE BY MOUTH EVERY DAY Referrals Referrals: Robert Velásquez APRN [Primary Care Provider] - Enter time for follow up Activity Restrictions/Add. Instructions Additional Instructions/Restrictions: *Monitor Temp, Over the counter Motrin or Tylenol as directed/as needed Tylenol every 4 hours and Motrin every 6 hours (as long as your family doctor has told you that you can take it) for fever or pain. and straight to ER if unable to lower temp less than 101.0 after medication given *Warm salt water gargles may help to soothe the throat *Throat Lozenges? *Warm fluids like tea with honey may help to soothe the throat? *Sleep elevated *Humidifier/Vaporizer Follow up IMMEDIATELY for new or worsening symptoms or no Noticeable improvement over the next 48-72 hours. 911 for difficulty breathing or swallowing You were tested for today for COVID19 your test result should be back in the next 24-48 hours, you may check your result on the [facility] My Health Portal Make sure to take your Vitamins Vit. C Vit D and Zinc if you can take them Clinical Impressions Clinical Impression: Sinusitis Stand Alone Forms Stand Alone Forms: [facility] Work Release Instructions Patient Instructions: Sinusitis, DI for Sinusitis, Coronavirus Disease 2019 Discharge ED Provider: Krystal Durham [facility] HPI General Stated complaint: cough congestion Time Seen by Provider: 11/04/21 15:10 Mode of Arrival: Ambulatory Source of Information: Patient Limitations: No Limitations Description of Symptoms (Recalled from Triage Doc. by RN): patient comes in with complaints of cough, headache for 4 days HEENT Symptoms (Recalled from RN notes): Yes Resp Symptoms (Recalled from RN notes): Yes Skin Symptoms (Recalled from RN notes): No MS Symptoms (Recalled from RN notes): No Functional Status (Recalled from RN notes): n/a History of Present Illness Provider Complaint: Patient states that she has been having cough, sinus congestion and pressure and headache that has got worse over the last 4 days States that she hasnt been exposed to COVID that she is aware of States that also she is out of her inhaler and wanted to get a refill Related Data Previous Rx's Medication Instructions Recorded gabapentin 300 mg capsule 300 mg PO TID #90 caps 09/08/21 duloxetine 30 mg capsule,delayed See Rx Instructions .Route 10/30/21 release .COMPLEX #90 caps albuterol sulfate 90 mcg/actuation 1 inh inhalation Q4-6H PRN 11/04/21 aerosol inhaler (ProAir HFA) shortness of breath or wheezing #90 grams azithromycin 250 mg tablet See Rx Instructions PO .COMPLEX #6 11/04/21 tabs methylprednisolone 4 mg tablets in 4 mg PO DAILY #21 tabs 11/04/21 a dose pack (Medrol (Brendan)) Allergies Allergy/AdvReac Type Severity Reaction Status Date / Time No Known Allergies Allergy Verified 11/04/21 15:11 Worker's Comp Is this a Worker's Comp case?: No PFSH PFSH Social History Smoking Status: Never smoker second hand exposure: No alcohol intake: never substance use type: denies use current occupational status: employed household members: family housing: [facility]
[2021-11-04 16:07] VITALS: BP 131/84; PULSE 71; RESP 19; TEMP 36.8
== END 2021-11-04 16:08 | disposition home or self-care (01) ==
PROVIDERS: Emergency Provider Nurse Practitioner; PCP Nurse Practitioner Family
DX: J32.9 Chronic sinusitis, unspecified
CPT/HCPCS: 87804; 99212; C9803; G0463; U0003; U0005

== ENCOUNTER 2022-04-21 12:54 | Emergency (ER) | payer OTHER, SELFPAY ==
--- NOTE | 2022-04-21 13:01 | XR_ITS ---
FINAL REPORT CLINICAL HISTORY: FALL FINDINGS: Right foot Three views were obtained. There is no acute fracture or dislocation. There is mild to moderate joint space narrowing of the 1st metatarsophalangeal joint consistent with osteoarthritis. No soft tissue abnormality is identified. IMPRESSION: No acute process. Reviewed, Interpreted and Dictated by Willie Jones MD Transcribed by Lulu Bella Authenticated and [facility]
--- NOTE | 2022-04-21 13:06 | XR_ITS ---
FINAL REPORT CLINICAL HISTORY: FALL FINDINGS: Right ankle Three views were obtained. There is no acute fracture or dislocation. The joint spaces appear normal. There is mild soft tissue swelling about the ankle. A small plantar spur is identified. IMPRESSION: No acute process. Reviewed, Interpreted and Dictated by Willie Jones MD Transcribed by Lulu Bella Authenticated and [facility]
[2022-04-21 13:29] VITALS: BP 116/68; PULSE 83; RESP 17; TEMP 36.6; O2SAT 98; BMI 38.0
--- NOTE | 2022-04-21 13:36 | EXP.UTC ---
Discharge Plan Disposition Patient Disposition: Home, Self-Care Condition: Good Prescriptions Prescriptions: No Action albuterol sulfate [ProAir HFA] 90 mcg/actuation HFA aerosol inhaler 1 inh inhalation Q4-6H PRN (Reason: shortness of breath or wheezing) Qty: 90 1RF duloxetine 30 mg capsule,delayed release(DR/EC) See Rx Instructions .ROUTE .COMPLEX Qty: 90 3RF Dose Instruction: TAKE ONE CAPSULE BY MOUTH EVERY DAY Rx Instructions: TAKE ONE CAPSULE BY MOUTH EVERY DAY gabapentin 300 mg capsule 300 mg PO TID Qty: 90 3RF amitriptyline 10 mg tablet 10 mg PO HS Qty: 30 1RF Referrals Follow up/Referrals: Robert Velásquez APRN [Primary Care Provider] - See instructions Jenifer Langley APRN [Nurse Practitioner] - See instructions Nikky Pate DPM [Staff Physician] - See instructions Activity Restrictions/Add. Instructions Additional Instructions/Restrictions: *weight bearing as tolerated *RICE, Rest the extremity, Ice 15-20 minutes 3-4 times daily, Compress- wear the kevyn wrap as discussed as much as possible to help reduce swelling and pain, Elevate the extremity when at rest *Kevyn wrap is for support and help control swelling, use it except in the shower. Be sure that is not to tight but not to loose either *Elevate when resting? *Ibuprofen 600-800mg every 6-8 hours as needed for pain an inflammation. If need something more can take Tylenol in between doses of Ibuprofen to help Immediately follow up with your family doctor for new or worsening of symptoms, or no noticeable improvement over the next 3-5 days Clinical Impressions Clinical Impression: Ankle sprain Qualifiers: Encounter type: initial encounter Involved ligament of ankle: unspecified ligament Laterality: right Qualified Code(s): S93.401A - Sprain of unspecified ligament of right ankle, initial encounter Stand Alone Forms Stand Alone Forms: Work/School Release Instructions Patient Instructions: How To Perform RICE (Rest, Ice, Compress, Elevate), How to Apply an Kevyn Wrap Discharge ED Provider: Krystal Durham [facility] HPI General Stated complaint: Fall 2/ RT foot pain Mode of Arrival: Ambulatory Source of Information: Patient Limitations: No Limitations Time Seen by Provider: 04/21/22 13:36 Description of Symptoms (Recalled from Triage Doc. by RN): Patient reports right ankle pain from a fall yesterday. HEENT Symptoms (Recalled from RN notes): No Resp Symptoms (Recalled from RN notes): No Skin Symptoms (Recalled from RN notes): No MS Symptoms (Recalled from RN notes): Yes Functional Status (Recalled from RN notes): wnl History of Present Illness Provider Complaint: Patient states that she slipped and fell yesterday on her porch at home and landed on her right ankle and foot States that she has been having pain in her right ankle and foot ever since with some swelling States that today it was still hurting when she would try to walk on it so she came in Related Data Previous Rx's Medication Instructions Recorded albuterol sulfate 90 mcg/actuation 1 inh inhalation Q4-6H PRN 02/11/22 aerosol inhaler (ProAir HFA) shortness of breath or wheezing #90 grams amitriptyline 10 mg tablet 10 mg PO HS #30 tabs 02/11/22 duloxetine 30 mg capsule,delayed See Rx Instructions .Route 02/11/22 release .COMPLEX #90 caps gabapentin 300 mg capsule 300 mg PO TID #90 caps 02/11/22 Allergies Allergy/AdvReac Type Severity Reaction Status Date / Time No Known Allergies Allergy Verified 02/11/22 13:40 Worker's Comp Is this a Worker's Comp case?: No [facility] Disclaimer: The information contained in this section may have been updated after the patient was seen, as this information can be updated by other users. Surgical History H/O elbow surgery H/O hand surgery History of hysterectomy Social History Smoking Status: Never sm
[2022-04-21 15:16] VITALS: BP 116/68; PULSE 83; RESP 17; TEMP 36.6; O2SAT 100
== END 2022-04-21 15:17 | disposition home or self-care (01) ==
PROVIDERS: Emergency Provider Nurse Practitioner; PCP Nurse Practitioner Family
DX: S93.401A Sprain of unspecified ligament of right ankle, initial encounter (principal)
CPT/HCPCS: 73610; 73630; 99212; 99213; G0463

== ENCOUNTER → 2022-08-26 07:50 | Outpatient (CLI) | payer BC, SELFPAY ==
--- NOTE | 2022-08-26 07:56 | US_ITS ---
FINAL REPORT CLINICAL HISTORY: painful lump on right side of neck. FINDINGS: Ultrasound examination of the soft tissues of the neck: Ultrasound examination of the soft tissues of the neck reveal normal appearing bilateral parotid and submandibular glands. The patient has a history of a painful palpable nodule in the right side of the neck, which corresponds to a 2.8 x 1.8 cm hypoechoic mass identified with ultrasound exam. There is a 2nd smaller adjacent 1.2 cm nodule present as well. IMPRESSION: 2.8 x 1.8 cm hypoechoic mass in the right side of the neck corresponds to the palpable nodule clinically. Another smaller nodule measuring 1.2 cm is present as well. These may represent small nodes or other masses. If indicated ultrasound guided fine needle aspiration would be helpful for further evaluation. Unremarkable parotid and submandibular glands. Reviewed, Interpreted and Dictated by Milton Garcia III, MD Transcribed by Donna Mart Authenticated and [facility]
== END ==
LOC: RAD 07:53
PROVIDERS: PCP Family Medicine; Visit Provider Family Medicine
DX: M54.2 Cervicalgia (principal); R22.1 Localized swelling, mass and lump, neck
CPT/HCPCS: 76536

== ENCOUNTER → 2022-09-28 07:24 | Outpatient (CLI) | payer BC, SELFPAY ==
--- NOTE | 2022-09-28 07:24 | US_ITS ---
FINAL REPORT CLINICAL HISTORY: .fna rt neck palp nodule-- troy osborne-- FINDINGS: Ultrasound guided right neck biopsy. HISTORY: Right neckmass. Attending radiologist: Dr. Shepherd Physician Technology Education Teacher: Troy Porras PA-C PROCEDURE: After informed consent was obtained and a time-out was performed, the patient was prepped and draped in usual sterile fashion over the right neck. Utilizing local anesthesia and sterile technique with a 25-gauge needle, access to lesion was obtained. A total of 4 passes were made. Samples were sent for cytology and flow cytometry. The patient received no conscious sedation. The patient tolerated procedure well and left the department in good condition. IMPRESSION: Status post ultrasound guided biopsy of right neck mass without immediate complication. Films reviewed , interpreted and dictated by Dr. Jeane Shepherd. Transcribed by Troy Porras PA-C. Reviewed, Interpreted and Dictated by eJane Shepherd MD Transcribed by MATTHEW Cain Authenticated and [facility]
== END ==
PROVIDERS: PCP Family Medicine; Visit Provider Surgery
DX: R22.1 Localized swelling, mass and lump, neck (principal)
CPT/HCPCS: 10005

== ENCOUNTER → 2022-10-08 07:55 | Outpatient (CLI) | payer BC, SELFPAY ==
--- NOTE | 2022-10-08 07:55 | CT_ITS ---
FINAL REPORT CLINICAL HISTORY: check for benign branchial cleft cyst COMPARISON: 08/06/2020 FINDINGS: CT NECK WITH CONTRAST TECHNIQUE: Axial CT with IV contrast administration. This study was performed with techniques to keep radiation doses as low as reasonably achievable, (ALARA). Individualized dose reduction techniques using automated exposure control or adjustment of mA and/or kV according to the patient's size were employed. FINDINGS: There is a low-density mildly heterogeneous mass posterior to the right jugular vein at the level of the hyoid bone. Mass measures 2.8 x 2.2 cm and previously measured 2.3 x 1.7 cm. No adenopathy. Salivary glands are normal. Larynx is unremarkable. Thyroid gland is unremarkable. There is no abscess. 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 No evidence of secondary infection. Reviewed, Interpreted and Dictated by John Bronson MD Transcribed by Abiola Posada Authenticated and [facility]
== END ==
LOC: RAD 07:55
PROVIDERS: PCP Family Medicine; Visit Provider Otolaryngology
DX: R59.9 Enlarged lymph nodes, unspecified (principal); R47.02 Dysphasia
CPT/HCPCS: 70491; Q9967

== ENCOUNTER → 2022-11-22 15:04 | Outpatient (CLI) | payer BC, SELFPAY ==
--- NOTE | 2022-11-22 15:15 | ECG_ITS ---
APPROVED REPORT Exam: Resting ECG HR:71 bpm ECG Measurements Heart Rate 71 AXES VT 167 P 51 QRSd 103 QRS 34 QT 394 T 12 QTc 417 Conclusion SINUS RHYTHM INCOMPLETE RIGHT BUNDLE BRANCH BLOCK [90+ ms QRS DURATION, TERMINAL R IN V1/V2, 40+ ms S IN I/aVL/V4/V5/V6] BORDERLINE ECG UNCONFIRMED REPORT Electronically signed by : Demario Scott MD 11/23/2022 10:24:33
[2022-11-22 16:25] LABS: Basophils % 0.6 % (0.1-2.0); Eosinophils # 0.2 K/mm3 (0.0-0.4); Eosinophils % 2.4 % (0.1-12.0); Hematocrit 40.7 % (37.0-47.0); Hemoglobin 13.2 g/dL (12.2-16.2); Lymphocytes % 27.5 % (10-50); Mean Corpuscular HGB Conc 32.5 g/dL (31.8-35.4); Mean Corpuscular Hemoglobin 28.4 pg (27.0-31.2); Mean Corpuscular Volume 87.7 fl (81-99); Mean Platelet Volume 7.6 fl (7.4-10.4); Monocytes # 0.3 K/mm3 (0.1-1.0); Monocytes % 4.1 % (1.7-9.3); Neutrophils # 4.7 K/mm3 (1.8-7.8); Neutrophils % 65.4 % (37.0-80.0); Platelet Count 411 K/mm3 (142-424); Red Blood Count 4.65 M/mm3 (4.20-5.40); White Blood Count 7.2 K/mm3 (4.8-10.8)
[2022-11-22 17:25] LABS: Alanine Aminotransferase 21 U/L (12-78); Albumin Level 4.4 g/dl (3.5-5.0); Albumin/Globulin Ratio 1.3 (1.1-1.8); Alkaline Phosphatase 80 U/L (38-126); Aspartate Amino Transferase 25 U/L (14-36); Bilirubin,Total 0.5 mg/dl (0.2-1.3); Blood Urea Nitrogen 25 mg/dl (7-17); Calcium 9.1 mg/dl (8.4-10.2); Carbon Dioxide 28 mmol/L (22.0-30.0); Chloride 104 mmol/L (98-107); Estimated Glomerular Filt Rate 67 ml/min (>60); GFR (African American) 81 ML/MIN (>60); Globulin 3.5 g/dL (1.3-3.2); Glucose 81 mg/dl (74-100); Sodium 141 mmol/L (136-145); Total Protein,Serum 7.9 g/dl (6.3-8.2)
== END ==
LOC: LAB 15:05
PROVIDERS: PCP Family Medicine; Visit Provider Otolaryngology
DX: Z01.818 Encounter for other preprocedural examination (principal); Q18.0 Sinus, fistula and cyst of branchial cleft
CPT/HCPCS: 36415; 80053; 85025; 93005

== ENCOUNTER 2022-11-25 11:03 | Day surgery (SDC) | payer BC, SELFPAY ==
[2022-11-24 12:05] VITALS: BMI 38.0
[2022-11-25] VITALS (10 sets, daily range): BP systolic 129–157; BP diastolic 55–101; PULSE 66–88; RESP 16–18; TEMP 36.1–36.5; O2SAT 92–100
--- NOTE | 2022-11-25 15:09 | EXP.ANES.CKL ---
[facility] Disclaimer: The information contained in this section may have been updated after the patient was seen, as this information can be updated by other users. Medical History Allergic rhinitis Anemia due to chronic blood loss Ankle sprain Asthma Branchial cleft cyst Chest wall contusion Endometriosis Exposure to COVID-19 virus Fibroid uterus Low back pain with radiation Menorrhagia Mixed dysphasia Otitis media Pelvic peritoneal adhesions, female Pharyngitis Postoperative visit Sciatica Sinus infection Sinusitis Sprain of hand, left Swollen lymph nodes Traumatic hematoma of knee URI (upper respiratory infection) Viral syndrome Wheezing due to allergy Surgical History H/O elbow surgery H/O hand surgery History of hysterectomy Social History Smoking Status: Never smoker second hand exposure: No alcohol intake: never substance use type: denies use current occupational status: employed Travel in the last 8 weeks: None household members: family housing: house current occupation: [employer] current occupational exposures/hazards: No caffeine: No [facility] Anesthesia Checklist Patient Identification Patient Identification: Arm Band Structural Data Admitted From: Home Planned Operative Procedure/s: Excision of Right Neck Mass Consent for Planned Operative Procedure(s) Verified: Yes Verified Documents: Surgical Consent and History and Physical NPO Status Verified Time NPO: 00:00 Additional verifications Anesthesia Reactions: No Hx Blood Transfusions: Yes Blood Transfusion Reaction: No Airway Assessment Mallampati Score:: Class II C-Spine Mobility Assessed: Yes TMJ Mobility Assessed: Yes Dentition: Good Dentition Anesthesia Plan Anesthesia Risk discussed: Yes Anesthesia Plan: Verified ASA Class: II Anesthesia Type: General
--- NOTE | 2022-11-25 17:01 | EXP.OP.NOTE ---
Date of procedure: 11/25/22 Pre-op Diagnosis:: Right neck mass Post-op Diagnosis:: Right neck mass Procedure performed:: Excision of deep cervical right neck mass level 2 with nerve integrity monitoring of the facial nerve, recurrent laryngeal nerve, and spinal accessory nerves Surgeon:: David Lenz MD [employer] OPERATOR:: Micah Harvey Anesthesia: GETA Estimated blood loss (mL): 0 Operative findings:: Soft tissue mass deep to the sternocleidomastoid muscle and adjacent to but anterior to the spinal accessory nerve extending to the deep cervical fascia. The mass was posterior to the carotid sheath and measured 3-1/2 x 2 cm and was sent for permanent section analysis Operative note:: The patient was brought to the operating room and placed supine and after adequate general anesthesia the right neck was prepped and draped in the usual sterile fashion and 1% lidocaine with epinephrine used to locally infiltrate a skin crease overlying the palpable mass. Nerve integrity monitoring electrodes were then placed to monitor the involved cranial nerves. An incision was then made and carried to the underlying platysma and then the external jugular vein and greater auricular nerve were identified and preserved and then dissection performed splitting the muscle fibers of the sternocleidomastoid muscle and dissecting down to the palpable mass. Here, the spinal accessory nerve was identified with nerve stimulation and then preserved and retracted posteriorly. The mass was then from surrounding soft tissue structures and was seen to be posterior to the carotid sheath. The mass was somewhat adherent to the surrounding soft tissue structures but exhibited no evidence of invasion. Several cutaneous nerves were preserved and dissected free from the surgical specimen. The specimen was then sent for permanent section analysis. Hemostasis was established with ligaclips and bipolar cautery. The wound was then irrigated with normal saline. Closure was performed using 4-0 Vicryl to reapproximate the platysma layer and subcutaneous layers and 5-0 nylon to reapproximate the skin edges. A sterile dressing was placed and the procedure concluded. All counts correct and blood loss was minimal and patient was sent to recovery in stable condition. Condition: stable Disposition: PACU Complications:: No complications
--- NOTE | 2022-11-25 17:05 | P.PNANES_ITS ---
[facility] Anesthesia Record Part I Anesthesia Record I Intake, IV Amount: 1,200 Hydration: Adequate Estimated blood loss (mL): 2 Urine output (mL): 0 Blood Products used (#): none Blood Pressure: 151/97 SaO2: 92 Pulse Rate: 84 Airway Patency: Patent Respiratory Rate: 16 Temperature: 97.3 F Patient is:: Drowsy and Stable Stable to PACU at:: 16:55
--- NOTE | 2022-11-25 18:25 | SUR.PHASEII ---
Pt's nausea and vomiting has improved upon discharge
--- NOTE | 2022-11-26 08:08 | EXP.ANES.II ---
[facility] Anesthesia Record Part II Anesthesia Record Part II Discharge Time: 17:25 Destination: Surgical Day Care (OP Surgery) PACU nurse assessment reviewed?: Yes Patient Condition:: Good Anesthesia Complications:: None Swallowing reflex intact?: Yes Airway Patency: Patent Cyanosis?: No Blood Pressure: 148/92 SaO2: 95 Respiratory Rate: 17 Pulse Rate: 85 Temperature: 97 F Mental Status: Alert & Oriented Pain level:: 0 Nausea and/or vomitting:: None Intake, IV Amount: 0 Hydration: Adequate
[2022-11-26 08:09] VITALS: BP 148/92; PULSE 85; RESP 17; TEMP 36.1; O2SAT 95
== END 2022-11-25 18:30 | disposition home or self-care (01) ==
PROVIDERS: PCP Family Medicine; Visit Provider Otolaryngology
PROC: (CPT 21554; principal; 2022-11-25 13:15)
DX: D36.10 Benign neoplasm of peripheral nerves and autonomic nervous system, unspecified (principal)
CPT/HCPCS: 21554; 13132; 96374; J0690; J2405

== ENCOUNTER → 2023-03-24 13:00 | Outpatient (POV) | payer BC, SELFPAY ==
[2023-03-24 13:40] VITALS: BP 147/79; PULSE 85; RESP 18; O2SAT 97; BMI 38.4
--- NOTE | 2023-03-24 14:08 | EXP.PAIN.OV ---
HPI Data of Consult Patient: new to practice Consult date: 03/24/23 Requesting Physician: Lillian Willoughby APRN Primary Care Provider: Brandon Cardona MD Consult Narrative Reason for consult: Right-sided jaw and neck pain, left shoulder pain History of present illness: Ms. Gonzalez is a 47 year old female who presents today as a new patient. She is a referral from [facility]. Today she rates her pain a 7 out of 10. Patient states her pain is all primarily in her neck along the right side and up into her jaw. Patient states the pain is all related to a surgical procedure that was done back on October 23 to remove a benign mass in the right side of her neck. Patient states that it was adipose tissue however it did intertwined in her nerves and blood vessels. Patient states this was a 3-hour surgery that they had to dissect down from. She states that since then she has had fairly constant sharp stabbing sensations that do affect her ability perform activities of daily living such as cooking and cleaning. Patient states frequently she has trouble swallowing with limited range of motion of her neck. Patient states that she has tried [id number] Tylenol and ibuprofen along with heat and ice and topicals with minimal relief. Patient states that she does have a history of fibromyalgia and is prescribed duloxetine and gabapentin however this does nothing for her pain in and around her neck and jaw. Patient denies any heart or kidney issues. Patient was given Machipongo 7.5 mg in the past following the surgery. Patient denies any side effects from these medications. Patient also states that she has chronic pain in her left shoulder related to a rotator cuff tear. She states she is scheduled for a surgical procedure to repair this on April 20. Her Dieter has been reviewed and is appropriate. CC: Lillian Willoughby APRN [facility] Disclaimer: The information contained in this section may have been updated after the patient was seen, as this information can be updated by other users. 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 FNA results showed atypical cells. No definitive diagnosis rendered. fLow cytometry was normal. Clinical exam suggests lymphadenopathy versus branchial cleft cyst. Neck CT will be scheduled with contrast and then I will see her back in follow-up. Eventually, surgical excision for diagnostic and therapeutic purposes may be necessary. Chest wall contusion Endometriosis Exposure to COVID-19 virus Fibroid uterus Hx of branchial cleft cyst Low back pain with radiation Menorrhagia Mixed dysphasia Otitis media Pelvic peritoneal adhesions, female Pharyngitis Postoperative visit Sciatica Sinus infection Sinusitis Sprain of hand, left Swollen lymph nodes Traumatic hematoma of knee URI (upper respiratory infection) Viral syndrome Wheezing due to allergy Surgical History H/O elbow surgery H/O hand surgery History of hysterectomy Social History (Updated 03/24/23 @ 13:41 by Emilia Cervantes RN) Smoking Status: Never smoker second hand exposure: No alcohol intake: never substance use type: denies use current occupational status: employed Travel in the last 8 weeks: None household members: family housing: house current occupation: [employer] current occupational exposures/hazards: No caffeine: No Review of Systems Review of Systems Review of systems:: pertinent systems reviewed and negative unless documented below Review of systems (narrative): Review of Systems: General: No recent weight changes, no fever, no sleep disturbances Respiratory: No cough, no shortness of air, no recurring pulmonary infections Cardiovascular/peripheral vascular: No chest pain, no palpitations, no edema, no shortness of breath Gastrointestinal: No new onset incontinence, normal bowel movements reported Genitourinary: No new onset incontinence Musculoskeletal: Neck pain right-sided, jaw pain, headaches, left shoulder pain Psychiatric: [Normal mood/affect] Neurological: [Denies weakness in extremities], [denies balance issues] Meds Home Medications and Allergies Home Medications Medication Instructions Recorded Confirmed Type duloxetine 30 mg capsule,delayed See Rx Instructions .Route 11/24/22 03/24/23 History release .COMPLEX Depression gabapentin 300 mg capsule 300 mg PO TID Pain 11/24/22 03/24/23 History ibuprofen 800 mg tablet 800 mg PO Q6H PRN Pain 11/24/22 03/24/23 History albuterol sulfate 90 mcg/actuation 1 inh inhalation Q4-6H PRN 03/10/23 03/24/23 Rx aerosol inhaler (ProAir HFA) shortness of breath or wheezing #90 grams mometasone-formoterol HFA 50 mcg-5 2 puff inhalation Q12H #13 grams 03/21/23 03/24/23 Rx mcg/actuation aerosol inhaler (Dulera) meloxicam 15 mg tablet 15 mg PO DAILY #14 tabs 03/24/23 Rx New Prescriptions to Start Prescriptions: meloxicam Lillian Willoughby Allergies Allergy/AdvReac Type Severity Reaction Status Date / Time No Known Allergies Allergy Verified 03/09/23 13:48 Objective Vital signs: Pulse Resp BP Pulse Ox O2 Del Method 85 18 147/79 H 97 Room Air 03/24/23 13:40 03/24/23 13:40 03/24/23 13:40 03/24/23 13:40 03/24/23 13:40 Narrative: Physical Exam: General: Alert and oriented x3, no acute distress, pleasant and cooperative Lungs: Respirations even and unlabored, symmetrical chest expansion Eyes: PERRL Musculoskeletal: Flexion and extension of cervical [spine] somewhat guarded secondary to pain Neurological: Speech clear, no gross sensory deficit Additional findings Additional findings: FINDINGS: CT NECK WITH CONTRAST TECHNIQUE: Axial CT with IV contrast administration. This study was performed with techniques to keep radiation doses as low as reasonably achievable, (ALARA). Individualized dose reduction techniques using automated exposure control or adjustment of mA and/or kV according to the patient's size were employed. FINDINGS: There is a low-density mildly heterogeneous mass posterior to the right jugular vein at the level of the hyoid bone. Mass measures 2.8 x 2.2 cm and previously measured 2.3 x 1.7 cm. No adenopathy. Salivary glands are normal. Larynx is unremarkable. Thyroid gland is unremarkable. There is no abscess. 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 No evidence of secondary infection. Reviewed, Interpreted and Dictated by John Bronson MD Transcribed by Abiola Posada Authenticated and [facility] Assessment and Plan *Assessment and plan (1) Neck pain: Status: Acute Category: Medical Code(s): M54.2 - Cervicalgia (2) Jaw pain: Status: Acute Category: Medical Code(s): R68.84 - Jaw pain (3) Left shoulder pain: Status: Acute Qualifiers: Chronicity: chronic Qualified Code(s): M25.512 - Pain in left shoulder; G89.29 - Other chronic pain Category: Medical Code(s): M25.512 - Pain in left shoulder Plan Patient is experiencing significant pain in her neck and jaw with limited range of motion of her cervical spine. I have discussed with the patient that she may be a beneficial candidate of a spinal cord stimulator trial in the future. Risk and benefits were discussed with the patient however at this time she is not interested. Patient denies any heart or kidney issues. I have discussed with the patient that I will discontinue her ibuprofen and send in a 2-week supply of meloxicam 15 mg daily. Patient has been counseled to discontinue all other NSAIDs while on this medication and to take it with food to minimize GI upset. I will also order the patient a compounded cream. Patient will return to clinic in 2 weeks for reevaluation of symptoms and plan of care. Patient has been instructed to contact the clinic with any concerns before the next appointment. Dr. Maloney has reviewed this note and agrees with this plan of care. This note was dictated using voice recognition software and make contain errors or omissions.
== END | disposition home or self-care (01) ==
PROVIDERS: PCP Family Medicine; Visit Provider Nurse Practitioner Family
DX: M54.2 Cervicalgia (principal); R68.84 Jaw pain; M25.512 Pain in left shoulder; G89.29 Other chronic pain
CPT/HCPCS: 99202; G0463

== ENCOUNTER → 2023-04-07 11:30 | Outpatient (POV) | payer BC, SELFPAY ==
--- NOTE | 2023-04-07 12:02 | A.OFFVIS_ITS ---
[facility] Pain Management SOAP Note Subjective:: Patient is a pleasant 48-year-old female who presents today for 2-week follow- up. We are currently treating the patient for left shoulder pain, right-sided jaw and neck pain. Today she rates her pain a 5 out of 10. Patient denies any new trauma or injury. She does state that she has gotten a phone call regarding the compounded cream however she has not called them back yet to get this ordered. Patient was prescribed meloxicam 15 mg and does state that this did seem to be helping and that she has been taking it alongside Tylenol with some improvement. Her Dieter has been reviewed and is appropriate. Review of Systems: General: No recent weight changes, no fever, no sleep disturbances Respiratory: No cough, no shortness of air, no recurring pulmonary infections Cardiovascular/peripheral vascular: No chest pain, no palpitations, no edema, no shortness of breath Gastrointestinal: No new onset incontinence, normal bowel movements reported Genitourinary: No new onset incontinence Musculoskeletal: Neck pain, right-sided jaw pain Psychiatric: [Normal mood/affect] Neurological: [Denies weakness in extremities], [denies balance issues] Objective:: Physical Exam: General: Alert and oriented x3, no acute distress, pleasant and cooperative Lungs: Respirations even and unlabored, symmetrical chest expansion Eyes: PERRL Musculoskeletal: Flexion and extension of cervical [spine] somewhat guarded secondary to pain Neurological: Speech clear, no gross sensory deficit Assessment:: Neck pain, right-sided jaw pain, left shoulder pain Plan:: Patient is doing well with the meloxicam and I will send in a 1 month supply of meloxicam 15 mg daily. Patient was also counseled that again injections may provide beneficial relief however she still would not like to proceed forward with this option. We will have her return to clinic in 1 month for medication refill and follow-up. Patient has been instructed to contact the clinic with any concerns before the next appointment. Dr. Maloney has reviewed this note and agrees with this plan of care. This note was dictated using voice recognition software and make contain errors or omissions. [facility] Disclaimer: The information contained in this section may have been updated after the patient was seen, as this information can be updated by other users. 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 FNA results showed atypical cells. No definitive diagnosis rendered. fLow cytometry was normal. Clinical exam suggests lymphadenopathy versus branchial cleft cyst. Neck CT will be scheduled with contrast and then I will see her back in follow-up. Eventually, surgical excision for diagnostic and therapeutic purposes may be necessary. Chest wall contusion Endometriosis Exposure to COVID-19 virus Fibroid uterus Hx of branchial cleft cyst Low back pain with radiation Menorrhagia Mixed dysphasia Otitis media Pelvic peritoneal adhesions, female Pharyngitis Postoperative visit Sciatica Sinus infection Sinusitis Sprain of hand, left Swollen lymph nodes Traumatic hematoma of knee URI (upper respiratory infection) Viral syndrome Wheezing due to allergy Surgical History H/O elbow surgery H/O hand surgery History of hysterectomy Social History (Updated 03/24/23 @ 13:41 by Emilia Cervantes RN) Smoking Status: Never smoker second hand exposure: No alcohol intake: never substance use type: denies use current occupational status: employed Travel in the last 8 weeks: None household members: family housing: house current occupation: [employer] current occupational exposures/hazards: No caffeine: No
[2023-04-07 12:33] VITALS: BP 140/76; PULSE 73; RESP 18; O2SAT 96; BMI 38.4
== END | disposition home or self-care (01) ==
PROVIDERS: PCP Family Medicine; Visit Provider Nurse Practitioner Family
DX: M54.2 Cervicalgia (principal); R68.84 Jaw pain; M25.512 Pain in left shoulder
CPT/HCPCS: 99212; G0463

== ENCOUNTER 2024-07-09 14:50 | Outpatient (CLI) | payer BC, SELFPAY | END 2024-07-09 23:59 | disposition home or self-care (01) | LOC: LAB.DROPOF 07-10 10:37 | PROVIDERS: PCP Nurse Practitioner Family; Visit Provider Nurse Practitioner Family | DX: M54.50 Low back pain, unspecified (principal); R10.9 Unspecified abdominal pain | CPT/HCPCS: 87086 ==

== ENCOUNTER 2025-02-11 14:19 | Outpatient (CLI) | payer OTHER, SELFPAY ==
--- OUTSIDE RECORDS SUMMARY | 2025-01-07 05:18 | XMS_ITS | Continuity of Care Document ---
Author Organization [facility] Phone Care Team Providers Care Rug Renovator Name Role Phone CARA SAADIA Admitting Unavailable PACK, SAADIA Unavailable Unavailable NANCY CALLE Primary Care Unavailable PACK, SAADIA Primary Attending Unavailable RESULTS Patient: ROMÁN CARIAS Date of : April 04 1 LABORATORY RESULTS Information is not available LABORATORY NARRATIVE RESULTS Information is not available RADIOLOGY RESULTS ORDER 100: ELBOW 3V LT (LOIN C: [id number]) ORDER DATE: January 04, 2025 12:07:00 PM [facility] PERFORMING LAB: [address] [id number] Final Result Date: December 132024 12:56:43 PM [place] [id number] Name: JV FRANCE Exam Date: 01/04/2025 : 1975 Age 49 years Gender: F Physician: SAADIA MARROQUIN Facility: [facility] Facility HSV: Outpatient Exam: ELBOW 3V LT EXAMINATION: XR LEFT ELBOW CLINICAL INDICATION: Female, 49 years old. left elbow pain and swelling TECHNIQUE: 3 view radiograph of the left elbow were obtained. [id number]. COMPARISON: No prior exam. FINDINGS: No arthropathy, fracture or dislocation. No demonstrable joint effusion. No other abnormal bone or soft tissue findings. IMPRESSION: Unremarkable left elbow. Electronically signed by: Zaid Colon MD 01/04/2025 08:56 AM EDT Dictated By: ZAID COLON Transcribed By: Transcribed On: 01/04/2025 8:56 AM Electronically signed by: ZAID COLON 01/04/2025 Thank you for referring JV FRANCE to [facility]. Legally authenticated by ISAIAH GORMAN 2025-01-04 08:56:43 PATHOLOGY NARRATIVE RESULTS Information is not available MICROBIOLOGY RESULTS No Micro Labs/Results Exist for Patient BLOOD ADMIN RESULTS Information is not available MEDICATIONS HOME MEDICATIONS Status RXNORM NDC Medication Dose Route Frequency Dates Comments Reported By Updated By Drug Treatment Unknown DISCHARGE MEDICATIONS Status RXNORM NDC Medication Dose Route Frequency Dates Dis pense Data Comments Physician Updated By No Discharge Medication Info rmation Available INPATIENT MEDICATIONS Status RXNORM NDC Medication Dose Route Frequency Rat e Quantity Dates Indication Dispense Data Comments Physician Updated By No Inpatient Medication Info rmation Available SOCIAL HISTORY SOCIAL HISTORY - Smoking Status SNOMED-CT Social History Element Description Effective Dates Offered Cessation Comment Updated By [id number] Smoking Status Unknown If Ever Smoked SOCIAL HISTORY - Gender Sex: Female SOCIAL HISTORY - Status : status i nformation is not available Intention in Next Year: intention information is not available SOCIAL HISTORY - Assessments Code System Description Status Date Value of Assessment Updated By Comment Assessment Information is no t available SOCIAL HISTORY - [place] Affiliation [place] information is not av ailable SOCIAL HISTORY - Legal Sex Legal Sex information is not available SOCIAL HISTORY - Sexual Behavior Sexual Orientation Gender Identity SNOMED-CT Description SNO MED -CT Description Activity Level No of Partners Partner Type UpdatedBy Information is not available SOCIAL HISTORY - Occupation Occupation information is no t available HEALTH CONCERNS Problems Concern Status Health Concern problem infor mation not available. Smoking Status Status Years Used Consumed packs p er day Health Concern smoking histo ry information not available. Family History Concern Status Health Concern family histor y information not available. ENCOUNTERS ENCOUNTER INFORMATION Reason for Visit XRAY Admission January 04, 2025 11:50:[address] [id number] Discharge January 04, 2025 11:50:00 AM [facility] DISCHARGED TO HOME OR SELF CARE ENCOUNTER DIAGNOSES Notes information is not tana ilable. Code System Diagnosis Onset Date Diagnosis information is not available. ABSTRACT DIAGNOSES Code System Diagnosis Updated By Abatement Date M25.522 ICD10 PAIN IN LEFT ELBOW [id number] o n January 07, 2025 10:18:36 AM UTC M25.422 ICD10 EFFUSION, LEFT ELBOW [id number] on January 07, 2025 10:18:36 AM UTC M25.422 ICD10 EFFUSION, LEFT ELBOW [id number] on January 07, 2025 10:18:36 AM UTC CARE TEAM Care Rug Renovator Role NAN PACK Admitting NAN PACK Referring NANCY CALLE Primary Care SAADIA MARROQUIN Primary Attending CARE TEAM CARE analytical statistician Role on Team Location Telecom Status Start Date End Omkar e Updated By ALVA Guerrero PCP normal January 04, 2025 4:00:00 AM [facility] January 04, 2025 11:50:00 AM UTC [id number] on January 04, 2025 11:51:52 AM UTC PACK NAN Referring normal December 4:00:00 AM [facility] January 04, 2025 11:50:00 AM UTC [id number] on January 04, 2025 11:51:52 AM UTC PACK NAN Attending normal December 4:00:00 AM [facility] January 04, 2025 11:50:00 AM UTC [id number] on January 04, 2025 11:51:52 AM UTC PACK NAN Admitting normal December 4:00:00 AM [facility] January 04, 2025 11:50:00 AM UTC [id number] on January 04, 2025 11:51:52 AM UTC
--- NOTE | 2025-02-11 14:23 | MR_ITS ---
FINAL REPORT CLINICAL HISTORY: LEFT ELBOW SWELLING knot on medial side of left elbow , marked with a marker injury november 2024 repetitive motion COMPARISON: None FINDINGS: Multiplanar and multisequence imaging of the left elbow was obtained without and with contrast. BONES: There is no acute fracture, contusion or pathologic marrow replacement. There is degenerative joint disease. A small subchondral cyst is noted in the coronoid process. LIGAMENTS: Abnormal appearance of the radial collateral ligament and at least a partial tear. Ulnar collateral ligament is intact. TENDON/MUSCLES: Abnormal signal intensity within the common extensor tendon at the lateral epicondyle consistent with a partial tear at the insertion. There is a partial tear of the common flexor tendon at the insertion on the medial epicondyle. The triceps tendon, biceps tendon, and brachialis tendon are intact and within normal limits. Signal intensity within the muscles themselves is normal. OTHER SOFT TISSUES: No significant joint effusion. No mass along the medial soft tissues at the marker placed is area of abnormality. The nerves and vascular structures appear normal. Postinfusion images demonstrate no abnormal enhancement. IMPRESSION: No mass within the soft tissues at the marker placed at area of reported abnormality. Partial tears of both the common extensor and common flexor tendons. Partial radial collateral ligament tear. Degenerative joint disease. Reviewed, Interpreted and Dictated by Jeane Shepherd MD Transcribed by Abiola Posada Authenticated and [facility]
--- OUTSIDE RECORDS SUMMARY | 2025-02-11 14:23 | XMS_ITS | Clinical Summary ---
Author Organization [facility] Address [address] [place] [id number] Phone [email or web address] Care Team Providers Care Patient Experience Coordinator Name Role Phone Provider, No Primary Care Provider Unavailabl e Allergies Active Allergy Reactions Criticality Noted Date Comments [place]as[place] 10/25/2022 Medications albuterol HFA 108 (90 Base) MCG/ACT inhaler 2 Active DULoxetine (CYMBALTA) [address] capsule Take 30 mg by mouth 1 (one) time each day. 2 Active gabapentin (NEURONTIN) 300 MG capsule TAKE ONE CAPSULE BY MOUTH THREE TIMES DAILY MAY CAUSE DROWSINESS 2 Active Dulera 50-5 MCG/ACT aerosol 5 Active naproxen (Naprosyn) 500 MG tabletIndicatio ns:Pain and swelling of elbow, left Take 1 tablet (500 mg total) by mouth in the morning and 1 tablet (500 mg total) in the evening. Take with meals. 60 tablet 11 5 01/04/20 26 Active Active Problems Problem Noted Date Diagnosed Date Encounter for hearing screening without abnormal findings 12/26/2024 Asthma Overview (08/10/2017): Immunizations Immunization Administration Dates Next Due Covid-19 (Moderna Galax, 12yrs+) (CVX-207) 2020,03/21/2020 Social History Tobacco Use Types Packs/Day Years Used Date Smoking Tobacco: Never Smokeless Tobacco: Never Tobacco Cessation:Counseling Given: Not Answered Alcohol Use Standard Drinks/Week Comments No 0 (1 standard drink = 0.6 oz pur e alcohol) Intimate Partner Violence Answer Date R ecorded Insults You Not on file 12/07/2021 Threatens You Not on file 12/07/2021 Screams at You Not on file 12/07/2021 Physically Hurt Not on file 12/07/2021 Intimate Partner Violence Score Not on file 12/07/2021 Alcohol Use Answer Date Recorded Alcohol Use Status No 04/16/2024 Depression Answer Date Recorded PHQ Total Score 0 01/03/2025 Stress Answer Date Recorded Stress in your Life Not on file 01/16/2024 Dealing with Stress 3 01/16/2024 Comments Unknown Sex and Gender Information Value Date Recorded Sex Assigned at Not on file Legal Sex Female 8:05 AM CDT Gender Identity Not on file Sexual Orientation Not on file Last Filed Vital Signs Vital Sign Reading Time Taken Comments Blood Pressure 119/78 01/30/2025 11:39 PM EST Pulse 86 01/30/2025 11:39 PM EST Temperature 36.6 C (97.9 F) 01/03/2025 11:08 PM EDT Respiratory Rate 20 01/18/2025 11:33 PM EST Oxygen Saturation 99% 01/30/2025 11:39 PM EST Inhaled Oxygen Concentration - - Weight 92 kg (202 lb 12.8 oz) 10/25/2022 9:04 PM EDT Height 157.5 cm (5' 2 ) 10/25/2022 9:04 PM EDT Body Mass Index 37.09 10/25/2022 9:04 PM EDT Plan of Treatment Upcoming Encounters Date Type Department Care Team (Late st Contact Info) Description 02/14/2025 10:30 PM EST Occ Office Visit [facility] [address] [place] [address] Natalia Otero PA [address] [place] [address] Health Maintenance Due Date Last Done Comments CT Colonography 1975 Cervical Cancer Screening Combo 1975 Colonoscopy 1975 Colorectal Cancer Screening Combo 1975 DNA Cologuard 1975 Dental Cleaning/Exam 1975 FIT or FOBT Test 1975 HIV Screening 1975 HPV only / HPV + Pap 1975 Hepatitis C Screening 1975 Pap only testing 1975 Sigmoidoscopy 1975 Asthma Spirometry 1980 Annual Preventive Exam 1993 Hep B Infection Screening - Triple Screen 1993 Hepatitis B Immunization (1 of 3 - 19+ 3-dose series) 1994 Pneumococcal Immunization (1 of 2 - PCV) 1994 Tetanus Diphtheria and Pertussis Immunization (1 - Tdap) 1994 Breast Cancer Screening 2005 Covid-19 Immunization (3 - season) 2024 05/07/2020, 03/21/2020 Influenza Immunization (#1) 2024 HIB Immunization Aged Out No longer e ligible based on patient's age to complete this topic HPV Immunization Aged Out No longer e ligible based on patient's age to complete this topic Hepatitis A Immunization Aged Out No longer eligible based on patient's age to complete this topic Polio Immunization Aged Out No longer eligible based on patient's age to complete this topic Insurance OPT OUT NO COPAY NB ANTHEM IN [address] [place] [address] Care Teams Patient Experience Coordinator Relationship Specialty Start Date End Date Provider, [place] [address] 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
--- OUTSIDE RECORDS SUMMARY | 2025-02-11 14:24 | XMS_ITS | Continuity of Care Document ---
Author Organization [facility], ORTHOPEDICS [address] [place] [address] Care Team Providers Care Surveyor Chain Helper Name Role Phone JERMAINE STARR Machining Department Supervisor [phone] Assessment Encounter Date Assessment Date Assessment LastModified by Organization Details LastModified Time 01/29/2025 01/29/2025 Outside x-rays of the left elbow reviewed, independently assessed, and person assessed the patient. Minimal arthritic changes noted at the elbow joint. Small calcification noted along the medial upper arm of unknown significance. Given acuity of symptoms that have failed to resolve with rest and activity modifications now for 2 months, plan to obtain an MRI for further diagnostic assessment to help guide additional treatment recommendations. She will continue ongoing work restrictions in the interim. [email or web address] Not available 01/29/2025 13:40:36 Plan of Treatment Reminders Order Date Submit Date Provider Last Modified By Organization Details Last Modified Time Details Appointments None recorded. Lab None recorded. Referral None recorded. Procedures None recorded. Surgeries None recorded. Imaging MRI, elbow, w/wo contrast - Left elbow evaluation for swelling/pr ominence along the medial antecubital fossa region, rule out mass lesion 2024 025 [facility] Scheduling Department -New Scheduling Process, [address] [facility] [address], [place], [address], 08:16:29 Medication Orders None recorded. Patient TargetsNo targets recorded. Patient InstructionsNo instructions recorded. Reason for Referral None Reported. Problems Name Problem SNOMED Code Status Onset Date Resolution Date Notes Provider Name and Address Organization Details Recorded Time Injury of left rotator cuff 3118308685610 9101 Active 2023 SANDEEP SALINAS, PT [address] [place], [address], [facility] 4 13:52:41 Muscle weakness 07536794 Active 2023 SANDEEP SALINAS, PT [address] [place], [address], [facility] 4 13:52:43 Abnormal posture 98425519 Active 2023 SANDEEP SALINAS, PT [address] [place], [address], [facility] 4 13:52:45 History of major orthopedic surgery 058023660 Active 2023 SANDEEP SALINAS, PT [address] [place], [address], [facility] 4 13:52:47 Problem Notes None recorded. Procedures Surgical History Date Name Laterality Status Provider Name and Address Organization Details Recorded Time 05/23/19 25 Injection - Joint/Bursa, Major completed KATRIN MORA MD [address] [place], [address], [facility] 05/23/2024 18:34:26 04/06/19 25 PT Therapeutic Activities - Direct 1:1 completed SANDEEP SALINAS, PT [address] [place], [address], [facility] 04/06/2024 14:17:25 04/06/19 25 PT Therapeutic Exercise completed SANDEEP SALINAS, PT [address] [place], [address], [facility] 04/06/2024 14:16:59 04/03/19 25 PT Therapeutic Activities - Direct 1:1 completed Phil Johnson [facility] 04/03/2024 14:35:14 04/03/19 25 PT Therapeutic Exercise completed Phil Johnson [facility] 04/03/2024 14:35:14 03/29/19 25 PT Therapeutic Activities - Direct 1:1 kayla Johnson [facility] 03/29/2024 14:35:27 03/29/19 25 PT Therapeutic Exercise completed Phil Johnson [facility] 03/29/2024 14:35:27 03/12/20 24 PT Therapeutic Activities - Direct 1:1 completed SANDEEP SALINAS, PT [address] [place], [address], [facility] 03/12/2024 12:01:35 03/12/20 24 PT Therapeutic Exercise completed SANDEEP SALINAS, PT [address] [place], [address], [facility] 03/12/2024 13:32:54 02/23/20 24 PT Manual Therapy completed SANDEEP SALINAS, PT [address] [place], [address], [facility] 02/23/2024 19:26:41 02/23/20 24 PT Therapeutic Activities - Direct 1:1 completed Phil Johnson [facility] 02/23/2024 14:23:41 02/23/20 24 PT Therapeutic Exercise completed Phil Johnson [facility] 02/23/2024 14:23:41 02/20/20 24 PT Manual Therapy completed SANDEEP SALINAS, PT [address] [place], [address], [facility] 02/20/2024 17:57:51 02/20/20 24 PT Therapeutic Activities - Direct 1:1 completed SANDEEP SALINAS, PT [address] [place], [address], [facility] 02/20/2024 17:55:28 02/20/20 24 PT Therapeutic Exercise completed SANDEEP SALINAS, PT [address] [place], [address], [facility] 02/20/2024 17:55:42 02/17/20 24 PT Therapeutic Activities - Direct 1:1 completed SANDEEP SALINAS, PT [address] [place], [address], [facility] 02/17/2024 11:09:52 02/17/20 24 PT Therapeutic Exercise completed SANDEEP SALINAS, PT [address] [place], [address], [facility] 02/17/2024 10:57:20 02/13/20 24 PT Therapeutic Activities - Direct 1:1 completed SANDEEP SALINAS, PT [address] [place], [address], [facility] 02/13/2024 15:17:56 02/13/20 24 PT Therapeutic Exercise completed SANDEEP SALINAS, PT [address] [place], [address], [facility] 02/13/2024 15:15:25 02/03/20 24 PT Therapeutic Activities - Direct 1:1 completed SANDEEP SALINAS, PT [address] [place], [address], [facility] 02/03/2024 15:57:24 02/03/20 24 PT Therapeutic Exercise completed SANDEEP SALINAS, PT [address] [place], [address], [facility] 02/03/2024 15:57:03 01/30/20 24 PT Therapeutic Activities - Direct 1:1 completed Phil Johnson [facility] 01/30/2024 11:14:50 01/30/20 24 PT Therapeutic Exercise completed Phil Johnson [facility] 01/30/2024 11:14:50 01/26/20 24 PT Therapeutic Activities - Direct 1:1 completed SANDEEP SALINAS, PT [address] [place], [address], [facility] 01/27/2024 17:52:28 01/26/20 24 PT Therapeutic Exercise completed SANDEEP SALINAS, PT [address] [place], [address], [facility] 01/27/2024 17:53:13 01/24/20 24 Injection - Joint/Bursa, Major completed Mary Grace Stilesieta [facility] 01/24/2024 12:29:07 01/24/20 24 PT Therapeutic Activities - Direct 1:1 completed Phil Johnson [facility] 01/24/2024 11:13:30 01/24/20 24 PT Therapeutic Exercise completed Phil Johnson [facility] 01/24/2024 11:13:30 01/20/20 24 PT Therapeutic Activities - Direct 1:1 completed Phil Alex [facility] 01/20/2024 10:57:13 01/20/20 24 PT Therapeutic Exercise completed SANDEEP SALINAS, PT [address] [place], [address], [facility] 01/20/2024 10:45:44 01/17/20 24 PT Therapeutic Activities - Direct 1:1 completed SANDEEP SALINAS, PT [address] [place], [address], [facility] 01/17/2024 18:07:22 01/17/20 24 PT Therapeutic Exercise completed SANDEEP SALINAS, PT [address] [place], [address], [facility] 01/17/2024 16:16:11 01/13/20 24 PT Therapeutic Activities - Direct 1:1 completed SANDEEP SALINAS, PT [address] [place], [address], [facility] 01/13/2024 14:20:00 01/13/20 24 PT Therapeutic Exercise completed SANDEEP SALINAS, PT [address] [place], [address], [facility] 01/13/2024 10:50:47 01/10/20 24 PT Therapeutic Activities - Direct 1:1 completed SANDEEP SALINAS, PT [address] [place], [address], [facility] 01/10/2024 14:09:24 01/10/20 24 PT Therapeutic Exercise completed Phil Johnson [facility] 01/10/2024 14:11:55 01/05/20 24 PT Therapeutic Activities - Direct 1:1 completed SANDEEP SALINAS, PT [address] [place], [address], [facility] 01/05/2024 12:40:03 01/05/20 24 PT Therapeutic Exercise completed SANDEEP SALINAS, PT [address] [place], [address], [facility] 01/05/2024 12:40:41 01/03/20 24 PT Therapeutic Activities - Direct 1:1 completed SANDEEP SALINAS, PT [address] [place], [address], [facility] 01/03/2024 12:21:12 01/03/20 24 PT Therapeutic Exercise completed SANDEEP SALINAS, PT [address] [place], [address], [facility] 01/03/2024 10:55:21 12/27/19 24 PT Therapeutic Exercise completed SANDEEP SALINAS, PT [address] [place], [address], [facility] 12/28/2023 12:04:10 12/01/19 24 PT Therapeutic Exercise completed SANDEEP SALINAS, PT [address] [place], [address], [facility] 12/01/2023 13:19:41 11/29/19 24 PT Therapeutic Exercise completed SANDEEP SALINAS, PT [address] [place], [address], [facility] 11/29/2023 18:53:23 11/22/19 24 PT Manual Therapy completed SANDEEP SALINAS, PT [address] [place], [address], [facility] 11/22/2023 14:00:40 11/22/19 24 PT Therapeutic Exercise completed SANDEEP SALINAS, PT [address] [place], [address], [facility] 11/22/2023 13:59:42 11/18/19 24 PT Therapeutic Exercise completed SANDEEP SALINAS, PT [address] [place], [address], [facility] 11/18/2023 14:47:19 11/10/19 24 PT/OT Neuromuscular Re-Education completed SANDEEP SALINAS, PT [address] [place], [address], [facility] 11/10/2023 13:53:35 11/10/19 24 PT Therapeutic Exercise completed SANDEEP SALINAS, PT [address] [place], [address], [facility] 11/10/2023 13:54:19 11/03/19 24 PT/OT Neuromuscular Re-Education completed SANDEEP SALINAS, PT [address] [place], [address], [facility] 11/03/2023 13:48:16 11/03/19 24 PT Therapeutic Exercise completed SANDEEP SALINAS, PT [address] [place], [address], [facility] 11/03/2023 13:48:38 10/27/19 24 PT Therapeutic Activities - Direct 1:1 completed SANDEEP SALINAS, PT [address] [place], [address], [facility] 10/30/2023 19:54:52 10/27/19 24 PT Therapeutic Exercise completed SANDEEP SALINAS, PT [address] [place], [address], [facility] 10/30/2023 19:55:23 10/20/19 24 PT Therapeutic Activities - Direct 1:1 completed SANDEEP SALINAS, PT [address] [place], [address], [facility] 10/20/2023 14:33:06 10/20/19 24 PT Therapeutic Exercise completed SANDEEP SALINAS, PT [address] [place], [address], [facility] 10/20/2023 14:33:06 10/06/19 24 PT Manual Therapy completed SANDEEP SALINAS, PT [address] [place], [address], [facility] 10/06/2023 14:29:12 10/06/19 24 PT Therapeutic Activities - Direct 1:1 completed SANDEEP SALINAS, PT [address], [place], [address], [facility] 10/06/2023 14:30:42 10/06/19 24 PT Therapeutic Exercise completed SANDEEP SALINAS, PT [address] [place], [address], [facility] 10/06/2023 14:30:02 09/21/19 24 PT Manual Therapy completed SANDEEP SALINAS, PT [address] [place], [address], [facility] 09/21/2023 13:14:13 09/21/19 24 PT Therapeutic Exercise completed SANDEEP SALINAS, PT [address] [place], [address], [facility] 09/21/2023 13:12:01 09/13/19 24 PT Manual Therapy completed SANDEEP SALINAS, PT [address] [place], [address], [facility] 09/13/2023 18:43:23 09/13/19 24 PT Therapeutic Exercise completed SANDEEP SALINAS, PT [address] [place], [address], [facility] 09/13/2023 18:42:15 09/08/19 24 PT Manual Therapy completed SANDEEP SALINAS, PT [address] [place], [address], [facility] 09/08/2023 16:40:14 09/08/19 24 PT Therapeutic Exercise completed SANDEEP SALINAS, PT [address] [place], [address], [facility] 09/08/2023 16:37:33 09/06/19 24 PT Therapeutic Exercise completed SANDEEP SALINAS, PT [address] [place], [address], [facility] 09/06/2023 19:22:00 08/23/19 24 PT Evaluation - Low Complexity completed SANDEEP SALINAS, PT [address] [place], [address], [place] [facility] 08/23/2023 13:51:36 08/23/19 24 PT Therapeutic Exercise completed SANDEEP SALINAS, PT [address] [place], [address], [facility] 08/23/2023 13:51:56 01/11/20 23 Electromyography (EMG) with Nerve Conduction Study (NCV) completed CHANI NOLAN MD [address] [place], [address], [facility] 01/10/2023 13:08:09 08/13/19 22 Cubital Tunnel Release - Wes completed MOOSE COOK MD [address] [place], [address], [facility] 08/12/2021 15:23:33 06/24/19 22 Electromyography (EMG) with Nerve Conduction Study (NCV) completed Qian Hutson (Camille) [facility] 06/23/2021 11:42:09 04/09/19 22 OT Evaluation - Moderate complexity completed HEMANT RIVERA/L, CHT [address] [place], [address], [facility] 04/09/2021 10:21:49 04/06/19 22 Trigger Finger Release - Wes completed MOOSE COOK MD [address] [place], [address], [facility] 04/06/2021 12:37:52 02/11/20 21 Injection - Trigger Finger, Ortho completed MOOSE COOK MD [address] [place], [address], [facility] 02/10/2021 15:09:24 12/03/19 21 Orthotic, HFO, Static Custom completed HEMANT RIVERA/L, CHT [address] [place], [address], [facility] 12/02/2020 11:05:32 11/20/19 21 Op Note completed MOOSE COOK MD [address] [place], [address], [facility] 12/04/2020 17:27:53 10/08/19 21 Injection - Tendon Sheath/Ligament completed MOOSE COOK MD [address] [place], [address], [facility] 10/07/2020 18:19:14 surgical manipulation of elbow joint completed Patricia Hudson [facility] 01/10/2023 11:14:15 procedure on finger completed Evans Hudson [facility] 01/10/2023 11:15:02 Imaging Results None recorded. Procedure Notes None recorded. Medical Equipment None Reported. Allergies Allergen ID Allergen Name Allergen Category Reaction Reaction Severity Criticality Documentation Date Start Date Code Code System Note Provider Name and Address Organization Details Recorded Time 442777 cobalt gluconate medicatio n Not available Not available Not available 01/28/20252022 74707 7 RxNorm Not Available pratibha - External Data Service - prod 19:34:47 Medications Name Sig Start Date Stop Date Status Note LastModified by Organization Details LastModified Time tramadol 50 mg tablet TAKE 1 TABL PO Q 4-6 HRS PRN FOR SEVERE POST SURGICAL PAIN 11/24 completed Not Available Not Available Not Available meloxicam 7.5 mg tablet TAKE 1 TABLE PO QD WITH FOOD REGARDLE SS OF PAIN LEVEL FOR 1 WEEK. THEN TAKE 1 TABLET PO QD ONLY PRN FOR PAIN RELIEF THEREAFT ER 11/24 completed Not Available Not Available Not Available gabapenti n 300 mg capsule Take 1 capsule 3 times a day by oral route. 05/16 completed Not Available Not Available Not Available gabapenti n 100 mg capsule Take 1 capsule every day by oral route at bedtime. 05/16 completed Not Available Not Available Not Available Percocet 5 mg-325 mg tablet Take 1 tablet every 4-6 hours by oral route as needed. 05/16 completed Not Available Not Available Not Available [place] 5 mg-325 mg tablet TAKE 1 TAB PO Q 4-6 HRS PRN FOR SEVERE POST SURGICAL PAIN 12/02 completed Not Available Not Available Not Available ondansetr on 4 mg disintegr ating tablet Place 1 tablet every 8 hours by translin gual route as needed. 05/16 completed Not Available Not Available Not Available duloxetin e 30 mg capsule,d elayed release Take 1 capsule every day by oral route. 01/29 completed Not Available Not Available Not Available Albuterol Sulfate HFA 90 mcg/Actua tion aerosol inhaler Every four to six hours 2007 active Frequenc y: q4-q6h;A lt Frequenc y: prn;Medi cation Descript ion: albutero l; Dosage:2 puffs; Route:in halation ; refills: 1; Quantity :1 aerosol Not Available Not Available Not Available amoxicill in 01/29 completed Not Available Not Available Not Available Vitals Date Recorded Body height Body mass index (BMI) Body weight Pain severity - 0-10 verbal numeric rating [Score] - Reported Provider Name and Address Organization Details Last Updated DateTime 01/29/2025 157.48 cm 32.7 kg/m2 49055.03 g 5 [facility] 01/29/2025 13:18:06 Social History None recorded. Functional Status None recorded. Mental Status None recorded. Family History Nothing Reported. Medical History Condition Response Included as Review of Systems Y Gynecological HistoryNo gynecological history recorded. Obstetrics History GPAL:G 0 P 0 0 0 0 Past Encounters Encounter ID Performer Location Encounter Start Date Encounter Closed Date Diagnosis/Indication Diagnosis SNOMED-CT Code Diagnosis ICD10 Code Diagnosis IMO Codes Diagnosis Note [id number] MOOSE COOK MD [facility] [address] [place] [address] 01/29/2025 13:05:07 01/29/2025 13:40:42 Postoperative care [id number] Z48.89 Previously s/p left cubital tunnel release in-situ (DOS: 08/12/21) Previously s/p Left small trigger finger release (DOS: 04/24/21) Previously s/p Left small finger radial collateral ligament repair (DOS: 11/19/20) Swelling o f upper limb 722243613 M25.422 [id number] Health Concerns Section Related Observation LastModified by Organization Detai ls LastModified Time None Recorded Concern Status LastModified by Organization Details LastModified Time None Recorded Payers Encounter Date Sequence Insurance Name Policy Number Policy Jones Covered Member ID Jones Member ID Guarantor Name 01/29/2025 [facility] [place] [facility] Yanira Gonzalez Notes Date Note Type Note Provider Name and Address Organization Details Recorded Time 01/29/2025 text/html ROS as noted in the HPI Pt last seen in the office over 3 years ago for follow-up of her left cubital tunnel surgery. She presents as a Worker's Compensation consultation for new issue with the left elbow. She states that she had been doing well until recently on 12/04/2024 when she was lifting a box overhead and subsequently developed pain and swelling along the anterior medial antecubital fossa region of the arm occasionally radiating up to the biceps muscle. Denies any recurrent numbness or tingling. Consult requested by: [facility] Physician: Hand dominance: RightLocation: Left Elbow Pain level: 5 /10 Date of injury: 12/04/24Duration: 8 weeks Recent Surgery: NoProcedure:Date of surgery:Duration: In office procedure? No Previous upper extremity surgery? YesProcedure: left cubital tunnel release in-situApproximate date of surgery: 2Surgeon (if known): Dr. Cook Procedure: Left small trigger finger releaseDate: 2Dr. Wes Procedure: Left small finger radial collateral ligament repairDate: 1Dr. Wes Have you or any of your immediate family members been seen by our hand surgeons before? 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 Gonzalez is here for lt elbow pain after lifting a box overhead and felt a pop in elbow. She has had burning pain in the medial elbow ever since. She is bringing xray disc. MOOSE COOK MD [facility] [place], [address], [facility] 01/29/2025 13:41:50 OBGyn Episode No OBEpisode recorded.
--- OUTSIDE RECORDS SUMMARY | 2025-02-11 14:24 | XMS_ITS | Data Portability ---
Author Organization [facility] SUKHJINDER [place] [facility] Address [address] [place] [address] Care Team Providers Care Veterinary Medical Officer Name Role Phone JERMAINE STARR Estate Agent [phone] Assessment Encounter Date Assessment Date Assessment LastModified by Organization Details LastModified Time 04/03/2024 04/03/2024 Patient has no complaint of pain and no significant fatigue with her exercises. She is still challenged by overhead activities but is able to perform these overhead activities without significant complaint of pain. Plan: Will recommend to Dr. Arenas that patient be able to return to work. Not available 04/05/2024 14:08:36 04/06/2024 04/06/2024 Pain is 0/10 greater than 75% of the time since the cortisone injection several weeks ago. Patient no longer has capsular tightness as appreciated by her normal passive mobility with a normal end feel. AROM continues to be limited but that is secondary to strength deficits. Patient continues to demonstrate strength and muscle endurance deficits she can perform normal daily activities at home but still is limited with activities such as hanging blinds which involves her arms being overhead for longer than 3 to 5 minutes at a time. She can place dishes into the kitchen cabinet. Her job at [employer] is more out in front of her than it is overhead per patient report. Patient did tolerate the work conditioning activities today and did begin to show fatigue and some compensatory shoulder hiking as she progressed through the second circuit of each of these exercises particularly the Y pull in 90/90 ER pull as well as all of the punch series. Plan: Patient will see Dr. Arenas on Tuesday04/10/24. Not available 04/06/2024 14:32:17 01/29/2025 01/29/2025 Outside x-rays of the left [...] region, rule out mass lesion 2024 025 [facility] Scheduling Department -New Scheduling Process, [address] [place] [address] [place] [address], [address], 08:16:29 Medication Orders None recorded. Patient TargetsNo targets recorded. Patient Instructions Encounter Date Encounter Id Patient Instructions Last Modified By Organization Details Last Modified Time 04/10/2024 [id number] left shoulder. Date of Injury: 10/19/2022 Post Op: 04/20/2023 Patient stated that her Left Shoulder is better and she is ready to return to work Exam: Left Shoulder Post Op Left Shoulder range of motion: Flexion: Left 140 Abduction: Left 140 ER: Left 30/70 IR: Left 40 Manual Muscle Test: Shoulder Flexion: Left 4+/5 Shoulder Abduction: Left 4+/5 Shoulder Internal Rotators: Left 4+/5 Shoulder External Rotators: Left 4+/5 Special tests: Supraspinatus Tests: Vikas. Adduction:Left Negative Empty can: Left Negative Biceps Test: Speeds: Left Negative Plan: She has done well since the subacromial steroid injection and being able to advance therapy for strengthening range of motion. She is ready to return to work at [employer]. 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 Date of Injury: 10/19/2022 Post Op: 04/20/2023 Patient has been in Work Hardening / Re-Intro / Regular at [employer] since last appt. Patient stated that her arm locks at work and home and she has to pop it to get it moving Exam: Right Shoulder Post Op: Right Shoulder range of motion: Flexion: Right 90 = 6 Extension: Right 35 = 1 Abduction: Right 90 = 4 Adduction: Right 23 = 4 ER: Right 60 / @90 = 0 IR: Right 50 = 2 Manual Muscle Test: Left shoulder Shoulder Flexion: 4/5 = 4 Shoulder Abduction: 4/5 = 2 Shoulder Internal Rotators: 4+/5 = 1 Shoulder External Rotators: 4+/5 = 1 Special tests: Supraspinatus Tests: Empty can: Right Positive Plan: We discussed her progress at about 13 months out now from surgery. It is easily on the longer side of recoveries. Left shoulder injection today helped her with range of motion and discomfort immediately. Patient is at MMI today: 14%WP / 24%UE Based on the [employer] Guides to the Evaluation of Permanent Impairments Fifth Edition Any Additional information needed see attached sheets Work Status: Regular Duty RC: ELAYNE solares Not available 05/23/2024 18:35:15 Reason for Referral None Reported. Problems Name Problem SNOMED Code Status Onset Date Resolution Date Notes Provider Name and Address Organization Details Recorded Time Injury of left rotator cuff 2179307610237 9101 Active 2023 SANDEEP SALINAS, PT [address] [place], [address], [facility] 4 13:52:41 Muscle weakness 27995007 Active 2023 SANDEEP SALINAS, PT [address] [place], [address], [facility] 4 13:52:43 Abnormal posture 98660089 Active 2023 SANDEEP SALINAS, PT [address] [place], [address], [facility] 4 13:52:45 History of major orthopedic surgery 821910304 Active 2023 SANDEEP SALINAS, PT [address] [place], [address], [facility] 4 13:52:47 Problem Notes None recorded. Procedures Surgical History Date Name Laterality Status Provider Name and Address Organization Details Recorded Time 05/23/19 25 Injection - Joint/Bursa, [place] [address] [place] [address], [address], [facility] 05/23/2024 18:34:26 04/06/19 25 PT Therapeutic Activities - Direct 1:1 completed SANDEEP SALINAS, PT [address] [place], [address], [facility] 04/06/2024 14:17:25 04/06/19 25 PT Therapeutic Exercise completed SANDEEP SALINAS, PT [address] [place], [address], [facility] 04/06/2024 14:16:59 04/03/19 25 PT Therapeutic Activities - Direct 1:1 completed Phil Johnson [facility] 04/03/2024 14:35:14 04/03/19 25 PT Therapeutic Exercise completed Phil Johnson [facility] 04/03/2024 14:35:14 03/29/19 25 PT Therapeutic Activities - Direct 1:1 completed Phil Johnson [facility] 03/29/2024 14:35:27 03/29/19 25 PT Therapeutic Exercise completed Phil Johnson [facility] 03/29/2024 14:35:27 03/12/20 24 PT Therapeutic Activities - Direct 1:1 completed SANDEEP SALINAS, PT [address] [place], [address], [facility] 03/12/2024 12:01:35 03/12/20 24 PT Therapeutic Exercise completed SANDEEP SALINAS, PT [address] [place], [address], [facility] 03/12/2024 13:32:54 02/23/20 24 PT Manual Therapy completed SANDEEP SALINAS, PT [address] [place], [address], [facility] 02/23/2024 19:26:41 02/23/20 24 PT Therapeutic Activities - Direct 1:1 completed Phil Johnson [facility] 02/23/2024 14:23:41 02/23/20 24 PT Therapeutic Exercise completed Phil Johnson [facility] 02/23/2024 14:23:41 02/20/20 24 PT Manual Therapy completed SANDEEP SALINAS, PT [address] [place], [address], [facility] 02/20/2024 17:57:51 02/20/20 24 PT Therapeutic Activities - Direct 1:1 completed SANDEEP SALINAS, PT [address] [place], [address], [facility] 02/20/2024 17:55:28 02/20/20 24 PT Therapeutic Exercise completed SANDEEP SALINAS, PT [address] [place], [address], [facility] 02/20/2024 17:55:42 02/17/20 24 PT Therapeutic Activities - Direct 1:1 completed SANDEEP SALINAS, PT [address] [place], [address], [facility] 02/17/2024 11:09:52 02/17/20 24 PT Therapeutic Exercise completed SANDEEP SALINAS, PT [address] [place], [address], [facility] 02/17/2024 10:57:20 02/13/20 24 PT Therapeutic Activities - Direct 1:1 completed SANDEEP SALINAS, PT [address] [place], [address], [facility] 02/13/2024 15:17:56 02/13/20 24 PT Therapeutic Exercise completed SANDEEP SALINAS, PT [address] [place], [address], [facility] 02/13/2024 15:15:25 02/03/20 24 PT Therapeutic Activities - Direct 1:1 completed SANDEEP SALINAS, PT [address] [place], [address], [facility] 02/03/2024 15:57:24 02/03/20 24 PT Therapeutic Exercise completed SANDEEP SALINAS, PT [address] [place], [address], [facility] 02/03/2024 15:57:03 01/30/20 24 PT Therapeutic Activities - Direct 1:1 completed Phil Johnson [place] - [facility] 01/30/2024 11:14:50 01/30/20 24 PT Therapeutic Exercise completed Phil Johnson [facility] 01/30/2024 11:14:50 01/26/20 24 PT Therapeutic Activities - Direct 1:1 completed SANDEEP SALINAS, PT [address] [place], [address], [facility] 01/27/2024 17:52:28 01/26/20 24 PT Therapeutic Exercise completed SANDEEP SALINAS, PT [address] [place], [address], [facility] 01/27/2024 17:53:13 01/24/20 24 Injection - Joint/Bursa, Major completed Mary Grace Stilesieta [facility] 01/24/2024 12:29:07 01/24/20 24 PT Therapeutic Activities - Direct 1:1 completed Phil Johnson [facility] 01/24/2024 11:13:30 01/24/20 24 PT Therapeutic Exercise completed Phil Johnson [facility] 01/24/2024 11:13:30 01/20/20 24 PT Therapeutic Activities - Direct 1:1 completed Phil Johnson [facility] 01/20/2024 10:57:13 01/20/20 24 PT Therapeutic Exercise completed SANDEEP SALINAS, PT [address] [place], [address], [facility] 01/20/2024 10:45:44 01/17/20 24 PT Therapeutic Activities - Direct 1:1 completed SANDEEP SALINAS, PT [address] [place], [address], [facility] 01/17/2024 18:07:22 01/17/20 24 PT Therapeutic Exercise completed SANDEEP SALINAS, PT [address] [place], [address], [facility] 01/17/2024 16:16:11 01/13/20 24 PT Therapeutic Activities - Direct 1:1 completed SANDEEP SALINAS, PT [address] [place], [address], [facility] 01/13/2024 14:20:00 01/13/20 PT Therapeutic Exercise completed SANDEEP SALINAS, PT [address] [place], [address], [facility] 01/13/2024 10:50:47 01/10/20 PT Therapeutic Activities - Direct 1:1 completed SANDEEP SALINAS, PT [address] [place], [address], [facility] 01/10/2024 14:09:24 01/10/20 PT Therapeutic Exercise completed Phil Johnson [facility] 01/10/2024 14:11:55 01/05/20 PT Therapeutic Activities - Direct 1:1 completed SANDEEP SALINAS, PT [address] [place], [address], [facility] 01/05/2024 12:40:03 01/05/20 24 PT Therapeutic Exercise completed SANDEEP SALINAS, PT [address] [place], [address], [facility] 01/05/2024 12:40:41 01/03/20 24 PT Therapeutic Activities - Direct 1:1 completed SANDEEP SAILNAS, PT [address] [place], [address], [facility] 01/03/2024 12:21:12 01/03/20 24 PT Therapeutic Exercise completed SANDEEP SALINAS, PT [address] [place], [address], [facility] 01/03/2024 10:55:21 12/27/19 24 PT Therapeutic Exercise completed SANDEEP SALINAS, PT [address] [place], [address], [facility] 12/28/2023 12:04:10 12/01/19 24 PT Therapeutic Exercise completed SANDEEP SALINAS, PT [address] [place], [address], [facility] 12/01/2023 13:19:41 11/29/19 24 PT Therapeutic Exercise completed SANDEEP SALINAS, PT [address] [place], [address], [facility] 11/29/2023 18:53:23 11/22/19 24 PT Manual Therapy completed SANDEEP SALINAS, PT [address] [place], [address], [facility] 11/22/2023 14:00:40 11/22/19 24 PT Therapeutic Exercise completed SANDEEP SALINAS, PT [address] [place], [address], [facility] 11/22/2023 13:59:42 11/18/19 24 PT Therapeutic Exercise completed SANDEEP SALINAS, PT [address] [place], [address], [facility] 11/18/2023 14:47:19 11/10/19 24 PT/OT Neuromuscular Re-Education completed SANDEEP SALINAS, PT [address] [place], [address], [facility] 11/10/2023 13:53:35 11/10/19 24 PT Therapeutic Exercise completed SANDEEP SALINAS, PT [address] [place], [address], [facility] 11/10/2023 13:54:19 11/03/19 24 PT/OT Neuromuscular Re-Education completed SANDEEP SALINAS, PT [address] [place], [address], [facility] 11/03/2023 13:48:16 11/03/19 24 PT Therapeutic Exercise completed SANDEEP SALINAS, PT [address] [place], [address], [facility] 11/03/2023 13:48:38 10/27/19 24 PT Therapeutic Activities - Direct 1:1 completed SANDEEP SALINAS, PT [address] [place], [address], [facility] 10/30/2023 19:54:52 10/27/19 24 PT Therapeutic Exercise completed SANDEEP SALINAS, PT [address] [place], [address], [facility] 10/30/2023 19:55:23 10/20/19 24 PT Therapeutic Activities - Direct 1:1 completed SANDEEP SALINAS, PT [address] [place], [address], [facility] 10/20/2023 14:33:06 10/20/19 24 PT Therapeutic Exercise completed SANDEEP SALINAS, PT [address] [place], [address], [facility] 10/20/2023 14:33:06 10/06/19 24 PT Manual Therapy completed SANDEEP SALINAS, PT [address] [place], [address], [facility] 10/06/2023 14:29:12 10/06/19 24 PT Therapeutic Activities - Direct 1:1 completed SANDEEP SALINAS, PT [address] [place], [address], [facility] 10/06/2023 14:30:42 10/06/19 24 PT Therapeutic Exercise completed SANDEEP SALINAS, PT [address] [place], [address], [facility] 10/06/2023 14:30:02 09/21/19 24 PT Manual Therapy completed SANDEEP SALINAS, PT [address] [place], [address], [facility] 09/21/2023 13:14:13 09/21/19 24 PT Therapeutic Exercise completed SANDEEP SALINAS, PT [address] [place], [address], [facility] 09/21/2023 13:12:01 09/13/19 24 PT Manual Therapy completed SANDEEP SALINAS, PT [address] [place], [address], [facility] 09/13/2023 18:43:23 09/13/19 24 PT Therapeutic Exercise completed SANDEEP SALINAS, PT [address] [place], [address], [facility] 09/13/2023 18:42:15 09/08/19 24 PT Manual Therapy completed SANDEEP SALINAS, PT [address] [place], [address], [facility] 09/08/2023 16:40:14 09/08/19 24 PT Therapeutic Exercise completed SANDEEP SALINAS, PT [address] [place], [address], [facility] 09/08/2023 16:37:33 09/06/19 24 PT Therapeutic Exercise completed SANDEEP SALINAS, PT [address] [place], [address], [facility] 09/06/2023 19:22:00 08/23/19 24 PT Evaluation - Low Complexity completed SANDEEP SALINAS, PT [address] [place], [address], [facility] 08/23/2023 13:51:36 08/23/19 24 PT Therapeutic Exercise completed SANDEEP SALINAS, PT [address] [place], [address], [facility] 08/23/2023 13:51:56 01/11/20 23 Electromyography (EMG) with Nerve Conduction Study (NCV) completed CHANI NOLAN MD [address] [place], [address], [facility] 01/10/2023 13:08:09 08/13/19 22 Cubital Tunnel Release - Wes completed MOOSE COOK MD [address] [place], [address], [facility] 08/12/2021 15:23:33 06/24/19 22 Electromyography (EMG) with Nerve Conduction Study (NCV) completed Qian Hutson (Camille) [facility] 06/23/2021 11:42:09 04/09/19 22 OT Evaluation - Moderate complexity completed NOY ZENDEJAS, OTR/L, CHT [address] [place], [address], [facility] 04/09/2021 10:21:49 04/06/19 22 Trigger Finger Release - [place] completed MOOSE COOK MD [address] [place], [address], [facility] 04/06/2021 12:37:52 02/11/20 21 Injection - Trigger Finger, Ortho completed MOOSE COOK MD [address] [place], [address], [facility] 02/10/2021 15:09:24 12/03/19 21 Orthotic, HFO, Static Custom completed NOY ZENDEJAS, OTR/L, CHT [address] [place], [address], [facility] 12/02/2020 11:05:32 11/20/19 21 Op Note completed MOOSE COOK MD [address] [place], [address], [facility] 12/04/2020 17:27:53 10/08/19 21 Injection - Tendon Sheath/Ligament completed MOOSE COOK MD [address] [place], [address], [facility] 10/07/2020 18:19:14 surgical manipulation of elbow joint completed Patricia [facility] 01/10/2023 11:14:15 procedure on finger completed Evans [facility] 01/10/2023 11:15:02 Imaging Results None recorded. Procedure Notes None recorded. Medical Equipment None Reported. Allergies Allergen ID Allergen Name Allergen Category Reaction Reaction Severity Criticality Documentation Date Start Date Code Code System Note Provider Name and Address Organization Details Recorded Time 028367 cobalt gluconate medicatio n Not available Not available Not available 01/28/20252022 52759 7 RxNorm Not Available pratibha - External [...] completed Not Available Not Available Not Available [place] 5 mg-325 mg tablet TAKE 1 TAB [...] height Body mass index (BMI) Body weight Provider Name and Address Organization Details Last Updated DateTime 04/10/2024 157.48 cm 37.3 kg/m2 84735.84 g Lindsey Aleman [facility] 04/10/2024 13:09:13 Date Recorded Body height Body mass index (BMI) Body weight Pain severity - 0-10 verbal numeric rating [Score] - Reported Provider Name and Address Organization Details Last Updated DateTime 05/22/2024 157.48 cm 37.3 kg/m2 05611.84 g 3 Lindsey Aleman [facility] 05/22/2024 11:46:21 Date Recorded Body height Body mass index (BMI) Body weight Pain severity - 0-10 verbal numeric rating [Score] - Reported Provider Name and Address Organization Details Last Updated DateTime 01/29/2025 157.48 cm 32.7 kg/m2 72169.03 g 5 Masha Spears [facility] 01/29/2025 13:18:06 Social History None recorded. Functional [...] ICD10 Code Diagnosis IMO Codes Diagnosis Note [id number] MOOSE COOK MD [facility] [address] [place] [address] 09/30/2020 10:15:49 09/30/2020 11:37:09 Complete tear, finger, metacarpophalangeal joint, radial collateral ligament 554030866 S63.657A Outside MRI of the left hand (08/25/20) is a somewhat poor quality study, but there does appear to be evidence of a complete tear of the small finger MCP radial collateral ligament. The wrist is incomplete ly visualized , thus difficult to make any assessment regarding her dorsal radial wrist symptoms. [id number] MOOSE COOK MD [facility] [address] [place] [address] 10/07/2020 14:05:50 10/08/2020 15:54:32 Complete tear, finger, metacarpophalangeal joint, radial collateral ligament 340947072 S63.657A Outside MRI of the left hand (08/25/20) is a somewhat poor quality study, but there does appear to be evidence of a complete tear of the small finger MCP radial collateral ligament. The wrist is incomplete ly visualized , thus difficult to make any assessment regarding her dorsal radial wrist symptoms. Radial sty loid tenosynovitis 83717127 M65.4 Left de Quervain's tenosynovi tis (CSI: 10/07/20) Extensor tenosynovitis of wrist 895492042 M65.839 Left ECRL insertiona l tendinitis (CSI: 10/07/20) MRI of the left wrist (10/07/20) demonstrat ed mild inflammati on within the first and second dorsal compartmen ts. Also evidence of insertiona l extensor tendinitis at the index finger metacarpal base with an associated CMC boss. Incidental ly noted was a focus of fluid signal along the palmar aspect of the distal radius which may represent a reflection of the joint capsule or a small ganglion cyst. There is mild ulnar minus variance in the wrist. There is possible mild marrow edema at the distal aspect of the fifth metacarpal , but this is not completely visualized . [id number] MOOSE COOK MD SURGERY SCHEDULE [address] [place] [address] 11/19/2020 07:46:23 11/19/2020 07:46:52 [id number] NOY ZENDEJAS OTR/L, CHT PHYSICAL THERAPY / HAND THERAPY [facility] [address] [address] 12/02/2020 10:51:56 12/02/2020 15:26:32 Complete tear, finger, metacarpophalangeal joint, radial collateral ligament 839384422 S63.656D [id number] KIMBERLY PEARSON PA-C [facility] [address] [facility] [place] [address] 12/02/2020 10:51:25 12/02/2020 11:35:14 Postoperative care [id number] Z48.89 s/p Left small finger radial collateral ligament repair (DOS: 11/19/20) Post op films today reveal stable alignment status post left small finger radial collateral ligament repair. [id number] MOOSE COOK MD ORTHOP[facility]I CS [facility] [address] [address] 12/30/2020 14:17:54 12/30/2020 14:49:42 Postoperative care [id number] Z48.89 6 weeks s/p Left small finger radial collateral ligament repair (DOS: 11/19/20) [id number] MOOSE COOK MD [facility] [address] [place] [address] 02/10/2021 14:14:13 02/10/2021 15:33:55 Postoperative care [id number] Z48.89 12 weeks s/p Left small finger radial collateral ligament repair (DOS: 11/19/20) Trigger fi nger of left hand [id number] 8129450 M65.352 Left small trigger finger (CSI: 02/10/21) [id number] MOOSE COOK MD [facility] [address] [place] [address] 03/17/2021 14:08:57 03/17/2021 15:06:46 Postoperative care [id number] Z48.89 4 months s/p Left small finger radial collateral ligament repair (DOS: 11/19/20) Trigger fi nger of left hand [id number] 4310070 M65.352 Left small trigger finger (CSI: 02/10/21) [id number] NOY ZENDEJAS OTR/L, CHT PHYSICAL THERAPY / HAND THERAPY [facility] [address] [place] [address] 04/03/2021 08:56:21 04/03/2021 10:58:18 [id number] MOOSE COOK MD SURGERY SCHEDULE [address] [place] [address] 04/06/2021 09:06:32 04/06/2021 09:07:26 [id number] NOY ZENDEJAS OTR/L, CHT PHYSICAL THERAPY / [facility]AP[facility] [address] [place] [address] 04/09/2021 10:10:15 04/09/2021 14:02:43 Trigger finger of left hand [id number] 0270286 M65.30 TFR [id number] KIMBERLY PEARSON PA-C [facility] [address] [place] [address] 04/24/2021 11:34:44 04/24/2021 12:00:02 Postoperative care [id number] Z48.89 Now s/p Left small trigger finger release (DOS: 04/24/21) Previously s/p Left small finger radial collateral ligament repair (DOS: 11/19/20) [id number] MOOSE COOK MD [facility] [address] [address] 05/21/2021 13:19:31 05/21/2021 14:14:38 Postoperative care [id number] Z48.89 1 month s/p Left small trigger finger release (DOS: 04/24/21) Previously s/p Left small finger radial collateral ligament repair (DOS: 11/19/20) Ulnar nerv e entrapment at elbow 954746942 G56.22 [id number] YANG NEWTON MD NEUROLOGY [facility] CLOSED [address] [place] [address] 06/23/2021 11:22:54 06/23/2021 13:04:43 Paresthesia [id number] R20.2 [id number] MOOSE COOK MD [facility] [address] [address] 06/23/2021 14:22:57 06/23/2021 15:09:43 Postoperative care [id number] Z48.89 2 months s/p Left small trigger finger release (DOS: 04/24/21) Previously s/p Left small finger radial collateral ligament repair (DOS: 11/19/20) Ulnar nerv e entrapment at elbow 411925060 G56.22 Left EMG/NCV negative cubital tunnel syndrome EMG/NCV (03/04) was normal. [id number] MOOSE COOK MD [facility] [address] [address] 07/28/2021 14:12:33 07/28/2021 14:57:59 Ulnar nerve entrapment at elbow 619287305 G56.22 Left EMG/NCV negative cubital tunnel syndrome EMG/NCV (03/04) was normal. Postoperative care [id number] [id number] Z48.89 3 months s/p Left small trigger finger release (DOS: 04/24/21) Previously s/p Left small finger radial collateral ligament repair (DOS: 11/19/20) [id number] MOOSE COOK MD SURGERY SCHEDULE [address] [place] [address] 08/12/2021 13:16:04 08/12/2021 13:36:15 [id number] KIMBERLY PEARSON PA-C [facility] [address] [place] [address] 08/27/2021 09:09:23 08/27/2021 09:29:01 Postoperative care [id number] Z48.89 Now s/p left cubital tunnel release in-situ (DOS: 08/12/21) Previously s/p Left small trigger finger release (DOS: 04/24/21) Previously s/p Left small finger radial collateral ligament repair (DOS: 11/19/20) [id number] MOOSE COOK MD [facility] [address] [place] [address] 10/01/2021 14:58:06 10/01/2021 16:09:23 Postoperative care [id number] Z48.89 7 weeks s/p left cubital tunnel release in-situ (DOS: 08/12/21) Previously s/p Left small trigger finger release (DOS: 04/24/21) Previously s/p Left small finger radial collateral ligament repair (DOS: 11/19/20) [id number] MOOSE COOK MD [facility] [address] [place] [address] 11/24/2021 10:21:25 11/24/2021 11:37:04 Postoperative care 157973482 Z48.89 3.5 months s/p left cubital tunnel release in-situ (DOS: 08/12/21) Previously s/p Left small trigger finger release (DOS: 04/24/21) Previously s/p Left small finger radial collateral ligament repair (DOS: 11/19/20) [id number] KATRIN ARENAS MD [facility] [address] [place] [address] 12/07/2022 10:28:43 12/07/2022 11:05:25 Pain of left shoulder joint [id number] 2330869 M25.512 possible RC injury versus parsonage reeves syndrome [id number] CHANI NOLAN MD PHYSICAL MEDICINE & REHABILIT ATION CLOSED [address] [place] [address] 01/10/2023 11:04:30 01/11/2023 16:53:28 Carpal tunnel syndrome of left wrist [id number] 37304 G56.02 1. Abnormal study 2. EDX evidence of mild sensory median neuropathy at the wrist consistent with mild carpal tunnel syndrome on the left. This is an incidental finding and not currently clinically correlated . 3. No EDX evidence of left-sided ulnar neuropathy , C5-T1 radiculopa thy, or brachial plexopathy . No EDX evidence of Parsonage Reeves. [id number] KATRIN ARENAS MD [facility] [address] [address] 01/31/2023 13:20:43 01/31/2023 14:32:10 Full thickness rotator cuff tear 604000173 M75.122 SST Arthritis of acromioclavicular joint 347963776 M13.812 [id number] KATRIN ARENAS MD SURGERY SCHEDULE [address] [place] [address] 04/20/2023 08:38:35 04/20/2023 08:39:32 [id number] SURYA LOPEZ IV, PA-C [facility] [address] [place] [address] 04/28/2023 11:09:46 04/28/2023 12:11:41 [id number] SURYA LOPEZ IV, PA-C [facility] [address] [place] [address] 05/17/2023 11:16:27 05/17/2023 11:41:29 [id number] KATRIN ARENAS MD [facility] [address] [place] [address] 06/21/2023 11:03:59 06/21/2023 11:50:25 Postoperative care [id number] Z48.89 2 months s/p left shoulder arthroscop ic labral debridemen t and mini open rotator cuff repair (DOS: 04/20/2023). [id number] KATRIN ARENAS MD [facility] [address] [place] [address] 07/28/2023 10:41:13 07/28/2023 12:01:48 Postoperative care 631488682 Z48.89 3 months s/p left shoulder arthroscop ic labral debridemen t and mini open rotator cuff repair (DOS: 04/20/2023). [id number] KATRIN ARENAS MD [facility] [address] [place] [address] 08/23/2023 11:00:33 08/23/2023 13:49:20 History of repair of musculotendinous cuff of shoulder 733726724 Z98.890 4 months s/p left shoulder arthroscop ic labral debridemen t and mini open rotator cuff repair (DOS: 04/20/2023). [id number] SANDEEP SALINAS, PT PHYSICAL THERAPY / HAND THERAPY [facility] [address] [place] [address] 08/23/2023 12:41:29 08/24/2023 16:50:20 Injury of left rotator cuff 0299018736 5658967 S46.002D Muscle weakness 35277638 M62.81 Abnormal posture 8321141 2 R29.3 History of major orthopedic surgery 872243738 Z98.890 [id number] SANDEEP SALINAS, PT PHYSICAL THERAPY / HAND THERAPY [facility] [address] [place] [address] 09/06/2023 13:59:36 09/07/2023 05:22:55 Injury of left rotator cuff 1503368684 4392329 S46.002D Muscle weakness 77083299 M62.81 Abnormal posture 3249921 2 R29.3 History of major orthopedic surgery 705407262 Z98.890 [id number] SANDEEP SALINAS, PT PHYSICAL THERAPY / HAND TH[facility]APY [facility] [address] [place] [address] 09/08/2023 14:25:27 09/09/2023 04:35:25 Injury of left rotator cuff 8619633914 7352232 S46.002D Muscle weakness 94494829 M62.81 Abnormal posture 9530676 2 R29.3 History of major orthopedic surgery 362701433 Z98.890 [id number] SANDEEP SALINAS, PT PHYSICAL THERAPY / HAND TH[facility]APY [facility] [address] [place] [address] 09/13/2023 12:00:31 09/14/2023 04:42:33 Injury of left rotator cuff 5227071955 6481094 S46.002D Abnormal posture 1466277 2 R29.3 History of major orthopedic surgery 552319137 Z98.890 Muscle weakness 41351621 M62.81 [id number] SANDEEP SALINAS, PT PHYSICAL THERAPY / HAND TH[facility]APY [facility] [address] [place] [address] 09/21/2023 10:59:19 09/22/2023 04:11:01 Injury of left rotator cuff 3916051155 3708299 S46.002D Abnormal posture 5859958 2 R29.3 History of major orthopedic surgery 481834664 Z98.890 Muscle weakness 87409613 M62.81 [id number] BARAK KEITH MD [facility] [address] [place] [address] 09/29/2023 11:00:19 09/29/2023 11:41:58 Injury of left rotator cuff 3775457087 6955570 S46.002D Chio is a 48-year-ol d female 5-month status post left shoulder rotator cuff repairShe works at [employer] continues to show slow steady improvemen tBased on range of motion and strength today not ready to return to work Recommend continued therapy program goal is to reestablis h normal shoulder right range of motion Follow-up 6 to 8 weeks if she is regained good active motion can progress with work conditioni ng and strengthen ing [id number] SANDEEP SALINAS, PT PHYSICAL THERAPY / HAND THERAPY [facility] [address] [place] [address] 10/03/2023 14:00:30 10/05/2023 04:39:56 Injury of left rotator cuff 6546540855 1302778 S46.002D Abnormal posture 3870830 2 R29.3 History of major orthopedic surgery 674626708 Z98.890 Muscle weakness 95785327 M62.81 [id number] SANDEEP SALINAS, PT PHYSICAL THERAPY / HAND TH[facility]APY [facility] [address] [place] [address] 10/06/2023 11:28:13 10/07/2023 04:40:58 Injury of left rotator cuff 8897296325 6253339 S46.002D Abnormal posture 0088623 2 R29.3 History of major orthopedic surgery 860862086 Z98.890 Muscle weakness 47507448 M62.81 [id number] SANDEEP SALINAS, PT PHYSICAL THERAPY / HAND TH[facility]APY [facility] [address] [place] [address] 10/20/2023 14:07:27 10/21/2023 04:46:43 Injury of left rotator cuff 5194139687 1661051 S46.002D Abnormal posture 1199902 2 R29.3 History of major orthopedic surgery 352730302 Z98.890 Muscle weakness 26162477 M62.81 [id number] SANDEEP SALINAS, PT PHYSICAL THERAPY / HAND TH[facility]APY [facility] [address] [place] [address] 10/27/2023 09:00:57 10/31/2023 04:13:10 Injury of left rotator cuff 0775842884 8909020 S46.002D Abnormal posture 9955221 2 R29.3 History of major orthopedic surgery 329114413 Z98.890 Muscle weakness 57910316 M62.81 [id number] SANDEEP SALINAS, PT PHYSICAL THERAPY / HAND [facility]APY [facility] [address] [place] [address] 11/03/2023 09:08:13 11/04/2023 04:23:43 Injury of left rotator cuff 1682797382 5231361 S46.002D Abnormal posture 3028454 2 R29.3 History of major orthopedic surgery 117211316 Z98.890 Muscle weakness 94307534 M62.81 [id number] SANDEEP SALINAS, PT PHYSICAL THERAPY / HAND TH[facility]APY [facility] [address] [place] [address] 11/10/2023 08:57:05 11/11/2023 04:54:03 Injury of left rotator cuff 2205833240 7645637 S46.002D Abnormal posture 0262613 2 R29.3 History of major orthopedic surgery 531128192 Z98.890 Muscle weakness 10835657 M62.81 [id number] KATRIN ARENAS MD [facility]OPEDI [facility] [address] [place] [address] 11/15/2023 11:03:27 11/15/2023 11:56:32 Full thickness rotator cuff tear 948327181 M75.122 SST [id number] SANDEEP SALINAS, PT PHYSICAL THERAPY / HAND THERAPY [facility] [address] [place] [address] 11/18/2023 11:06:38 11/21/2023 13:04:56 Injury of left rotator cuff 6124385534 3764467 S46.002D Abnormal posture 8015741 2 R29.3 History of major orthopedic surgery 637422047 Z98.890 Muscle weakness 19229425 M62.81 [id number] SANDEEP SALINAS, PT PHYSICAL THERAPY / HAND TH[facility]APY [facility] [address] [place] [address] 11/22/2023 12:08:04 11/23/2023 04:05:21 Injury of left rotator cuff 7567277087 9475295 S46.002D Abnormal posture 1371240 2 R29.3 History of major orthopedic surgery 766715484 Z98.890 Muscle weakness 88557201 M62.81 [id number] SANDEEP SALINAS, PT PHYSICAL THERAPY / HAND TH[facility]APY [facility] [address] [place] [address] 11/29/2023 10:55:44 11/30/2023 04:09:30 Injury of left rotator cuff 3910128199 9176560 S46.002D Abnormal posture 0844433 2 R29.3 History of major orthopedic surgery 238009316 Z98.890 Muscle weakness 66845205 M62.81 [id number] SANDEEP SALINAS, PT PHYSICAL THERAPY / HAND TH[facility]APY [facility] [address] [place] [address] 12/01/2023 11:02:22 12/02/2023 04:54:07 Injury of left rotator cuff 0812603305 5328981 S46.002D Abnormal posture 3029632 2 R29.3 History of major orthopedic surgery 312102293 Z98.890 Muscle weakness 32356245 M62.81 [id number] KATRIN ARENAS MD [facility] [address] [place] [address] 12/20/2023 11:05:31 12/29/2023 04:48:17 Full thickness rotator cuff tear 691643531 M75.122 SST [id number] SANDEEP SALINAS, PT PHYSICAL THERAPY / HAND TH[facility]APY [facility] [address] [place] [address] 12/20/2023 11:06:08 12/22/2023 04:52:55 Injury of left rotator cuff 1371798394 4874419 S46.002D Abnormal posture 4204540 2 R29.3 History of major orthopedic surgery 749528562 Z98.890 Muscle weakness 61300009 M62.81 [id number] SANDEEP SALINAS, PT PHYSICAL THERAPY / HAND TH[facility]APY [facility] [address] [place] [address] 12/27/2023 14:28:33 12/29/2023 04:59:53 Injury of left rotator cuff 7175781712 4414538 S46.002D Abnormal posture 0330756 2 R29.3 History of major orthopedic surgery 599387306 Z98.890 Muscle weakness 61994900 M62.81 [id number] SANDEEP SALINAS, PT PHYSICAL THERAPY / HAND TH[facility]APY [facility] [address] [place] [address] 01/03/2024 10:25:44 01/04/2024 04:34:09 Injury of left rotator cuff 3280137156 5211032 S46.002D Abnormal posture 5036117 2 R29.3 History of major orthopedic surgery 123405533 Z98.890 Muscle weakness 51956772 M62.81 [id number] SANDEEP SALINAS, PT PHYSICAL THERAPY / HAND THERAPY [facility] [address] [place] [address] 01/05/2024 11:23:17 01/06/2024 04:48:37 Injury of left rotator cuff 4637314870 0377152 S46.002D Abnormal posture 2933153 2 R29.3 History of major orthopedic surgery 625889804 Z98.890 Muscle weakness 30995272 M62.81 [id number] SANDEEP SALINAS, PT PHYSICAL THERAPY / HAND THERAPY [place] [address] 01/10/2024 13:54:40 01/11/2024 05:02:22 Injury of left rotator cuff 7875339985 5587981 S46.002D Abnormal posture 9690025 2 R29.3 History of major orthopedic surgery 796876371 Z98.890 Muscle weakness 26753108 M62.81 [id number] SANDEEP SALINAS, PT PHYSICAL THERAPY / HAND THERAPY [facility] [address] [place] [address] 01/13/2024 10:04:46 01/14/2024 04:21:17 Injury of left rotator cuff 4378305356 2385849 S46.002D Abnormal posture 7217287 2 R29.3 History of major orthopedic surgery 869943441 Z98.890 Muscle weakness 65691117 M62.81 [id number] SANDEEP SALINAS, PT PHYSICAL THERAPY / HAND THERAPY [facility] [address] [place] [address] 01/17/2024 15:25:01 01/18/2024 05:02:59 Injury of left rotator cuff 6132870861 7582172 S46.002D Abnormal posture 4562909 2 R29.3 History of major orthopedic surgery 261533475 Z98.890 Muscle weakness 70038088 M62.81 [id number] SANDEEP SALINAS, PT PHYSICAL THERAPY / HAND TH[facility]APY [place] [address] 01/20/2024 10:06:40 01/21/2024 04:26:38 Injury of left rotator cuff 8853917697 0137076 S46.002D Abnormal posture 0142996 2 R29.3 History of major orthopedic surgery 087450006 Z98.890 Muscle weakness 23741617 M62.81 [id number] KATRIN ARENAS MD [facility]OPEDI [facility] [address] [place] [address] 01/24/2024 10:39:40 01/24/2024 12:37:01 Full thickness rotator cuff tear 531952549 M75.122 SST [id number] SANDEEP SALINAS, PT PHYSICAL THERAPY / HAND THERAPY [facility] [address] [place] [address] 01/24/2024 10:38:43 01/25/2024 04:49:54 Injury of left rotator cuff 7546523701 3697851 S46.002D Abnormal posture 6897824 2 R29.3 History of major orthopedic surgery 202955197 Z98.890 Muscle weakness 19644476 M62.81 [id number] SANDEEP SALINAS, PT PHYSICAL THERAPY / HAND TH[facility]APY [facility] [address] [place] [address] 01/26/2024 11:24:29 01/28/2024 04:24:47 Injury of left rotator cuff 7929806136 5764817 S46.002D Abnormal posture 3343823 2 R29.3 History of major orthopedic surgery 276282309 Z98.890 Muscle weakness 00256102 M62.81 [id number] SANDEEP SALINAS, PT PHYSICAL THERAPY / HAND THERAPY [facility] [address] [place] [address] 01/30/2024 10:55:48 01/31/2024 04:48:30 Injury of left rotator cuff 7588553588 3957897 S46.002D Abnormal posture 8840552 2 R29.3 History of major orthopedic surgery 243528429 Z98.890 Muscle weakness 02492600 M62.81 [id number] SANDEEP SALINAS, PT PHYSICAL THERAPY / HAND THERAPY [facility] [address] [place] [address] 02/03/2024 10:31:23 02/04/2024 04:19:55 Injury of left rotator cuff 7864767979 5574502 S46.002D Abnormal posture 6530389 2 R29.3 History of major orthopedic surgery 171912774 Z98.890 Muscle weakness 34152882 M62.81 [id number] SANDEEP SALINAS, PT PHYSICAL THERAPY / HAND THERAPY [facility] [address] [address] 02/13/2024 14:41:38 02/14/2024 04:35:26 Injury of left rotator cuff 9961395580 2665880 S46.002D Abnormal posture 6291147 2 R29.3 History of major orthopedic surgery 384329834 Z98.890 Muscle weakness 69511109 M62.81 [id number] SANDEEP SALINAS, PT PHYSICAL THERAPY / HAND THERAPY [facility] [address] [address] 02/17/2024 10:34:07 02/18/2024 04:15:20 Injury of left rotator cuff 9339013563 0463982 S46.002D Abnormal posture 1078248 2 R29.3 History of major orthopedic surgery 178564771 Z98.890 Muscle weakness 56475856 M62.81 [id number] SANDEEP SALINAS, PT PHYSICAL THERAPY / HAND THERAPY [facility] [address] [address] 02/20/2024 15:06:07 02/21/2024 05:16:48 Injury of left rotator cuff 9719409440 0345187 S46.002D Abnormal posture 8661929 2 R29.3 History of major orthopedic surgery 224715438 Z98.890 Muscle weakness 61606622 M62.81 [id number] SANDEEP SALINAS, PT PHYSICAL THERAPY / HAND THERAPY [facility] [address] [place] [address] 02/23/2024 14:04:04 02/24/2024 04:56:05 Injury of left rotator cuff 9264959537 4927373 S46.002D Abnormal posture 0031934 2 R29.3 History of major orthopedic surgery 165875972 Z98.890 Muscle weakness 00737360 M62.81 [id number] KATRIN ARENAS MD ORTHOPEDI CS [facility] [address] [place] [address] 03/05/2024 12:56:15 03/05/2024 13:31:01 Full thickness rotator cuff tear 357559916 M75.122 SST [id number] SANDEEP SALINAS, PT PHYSICAL THERAPY / HAND THERAPY [facility] [address] [place] [address] 03/12/2024 11:10:22 03/13/2024 04:55:05 Injury of left rotator cuff 4094235680 6591611 S46.002D Abnormal posture 8666967 2 R29.3 History of major orthopedic surgery 956299322 Z98.890 Muscle weakness 93875005 M62.81 [id number] SANDEEP SALINAS, PT PHYSICAL THERAPY / HAND TH[facility]APY [facility] [address] [place] [address] 03/29/2024 14:20:44 03/30/2024 05:29:01 Injury of left rotator cuff 7210391115 8569691 S46.002D Abnormal posture 1702447 2 R29.3 History of major orthopedic surgery 620911839 Z98.890 Muscle weakness 82661521 M62.81 [id number] SANDEEP SALINAS, PT PHYSICAL THERAPY / HAND TH[facility]APY [facility] [address] [place] [address] 04/03/2024 14:13:41 04/06/2024 04:33:53 Injury of left rotator cuff 6072467848 2839476 S46.002D Abnormal posture 1554493 2 R29.3 History of major orthopedic surgery 403570846 Z98.890 Muscle weakness 82995805 M62.81 [id number] SANDEEP SALINAS, PT PHYSICAL THERAPY / HAND TH[facility]APY [facility] [address] [place] [address] 04/06/2024 10:41:01 04/07/2024 14:08:31 Injury of left rotator cuff 3072885580 8426539 S46.002D Abnormal posture 6754204 2 R29.3 History of major orthopedic surgery 503247847 Z98.890 Muscle weakness 00076229 M62.81 [id number] KATRIN ARENAS MD ORTHOPEDI [facility] [address] [address] 04/10/2024 13:06:04 04/10/2024 13:47:40 Full thickness rotator cuff tear 144533391 M75.122 SST [id number] KATRIN ARENAS MD [facility]OPEDI [facility] [address] [address] 05/22/2024 11:13:42 05/28/2024 08:23:09 Full thickness rotator cuff tear 461626691 M75.122 SST [id number] MOOSE COOK MD ORTHOPEDI CS [address] [place] [address] 01/29/2025 13:05:07 01/29/2025 13:40:42 Postoperative care 636686756 Z48.89 Previously s/p left cubital tunnel release in-situ (DOS: 08/12/21) Previously s/p Left small trigger finger release (DOS: 04/24/21) Previously s/p Left small finger radial collateral ligament repair (DOS: 11/19/20) Swelling o f upper limb 659664225 M25.422 [id number] Health Concerns Section Related Observation LastModified by Organization Detai ls LastModified Time None Recorded Concern Status LastModified by Organization Details LastModified Time None Recorded Advance Directives Directive None Recorded Payers Insurance Date Sequence Insurance Name Policy Number Policy Jones Covered Member ID Jones Member ID Guarantor Name 01/08/[address] [facility] Tmmk Yanira sa Ryan Gonzalez 01/29/2025 1 [place] [id number] Chio Gonzalez [id number] Chio Gonzalez 01/29/2025 [employer]ED (MOVED TO HOLD) Chio Gonzalez 01/29/2025 PROGRESSIVE Chio D Carlos Barroso D Gonzalez 01/08[facility]2025 [facility] [place] D Gonzalez 01/10/2023 1 [employer] (PPO) [id number] Freddy Gonzalez [id number] Chio Gonzalez Notes Date Note Type Note Provider Name and Address Organization Details Recorded Time 04/03/2024 text/html Patient has no new complaints. She sees Dr. Arenas back next week. She is hopeful that she will be returning to work. PT and the patient discussed today and I feel patient is ready to return to work. SANDEEP SALINAS, PT [address] [place], [address], [facility] 04/05/2024 14:08:50 04/06/2024 text/html Patient states that her current pain level is 0/10Patient is also able to get comfortable to sleep at night.If patient does anything with the left upper extremity overhead greater than 3 to 4 minutes she begins to have discomfort into the posterior shoulder.She tried to put in the hardware to hang blinds yesterday and this was hard for her to do. She had pain no greater than 3-4/10 and the arm was achy for several minutes following this activity. She could also tell that she did not have as much muscle endurance for she had some muscle fasciculation. 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 SANDEEP SALINAS, PT [address] [place], [address], [facility] 04/06/2024 14:33:03 04/10/2024 text/html Patient comes in today for FU Left Shoulder.Patient states they are better than last visit.Pain is intermittent dull ache in nature.The patient does not have numbness or tinglingThey do not have popping and clickingThey are able to sleep comfortably with this injury.Their pain is made better with resting the limbTheir pain is exacerbated by nothingOverall, the patient would say that their pain is well-controlled at this time. 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 She continues to work in therapy KATRIN ARENAS MD [address] [place] [address], [address], [facility] 05/23/2024 18:35:51 01/29/2025 text/html ROS as noted in the [...] recurrent numbness or tingling. Consult requested by: [facility] Care Physician: Hand dominance: RightLocation: Left Elbow Pain [...] surgeons before? 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 Gonzalez is here for lt elbow pain after lifting a box overhead and felt a pop in elbow. She has had burning pain in the medial elbow ever since. She is bringing xray disc. MOOSE COOK MD [facility] [place], [address], [facility] 01/29/2025 13:41:50 OBGyn Episode No OBEpisode recorded.
[2025-02-11] MEDS: GADOTERIDOL INJ 20ML SYRINGE 17 ML IV (15:25)
== END 2025-02-11 23:59 | disposition home or self-care (01) ==
LOC: RAD 14:20
PROVIDERS: PCP Family Medicine; Visit Provider Orthopaedic Surgery Hand Surgery
DX: S56.512A Strain of other extensor muscle, fascia and tendon at forearm level, left arm, initial encounter (principal); S56.212A Strain of other flexor muscle, fascia and tendon at forearm level, left arm, initial encounter; S53.432A Radial collateral ligament sprain of left elbow, initial encounter; M19.022 Primary osteoarthritis, left elbow
CPT/HCPCS: 73223; A9576